=== PATIENT | male | born 1950 | race Caucasian/White ===

== ENCOUNTER 2016-09-09 23:29 | Emergency (ER) | payer MEDICARE ==
[2016-09-10 00:07] LABS: ALANINE AMINOTRANSFERASE 42 U/L (21-72); ALBUMIN 4.8 g/dL (3.5-5.0); ALKALINE PHOSPHATASE 55 U/L (38-126); ANION GAP 16 (5-19); ASPARTATE AMINO TRANSFERASE 35 U/L (17-59); BILIRUBIN,TOTAL 1.5 mg/dL (0.2-1.3); BLOOD UREA NITROGEN 17 mg/dL (7-20); CALCIUM 9.4 mg/dL (8.4-10.2); CARBON DIOXIDE 25 mmol/L (22-30); CHLORIDE 105 mmol/L (98-107); CREATININE RESULT 0.95 mg/dL (0.52-1.25); GLUCOSE 102 mg/dL (75-110); POTASSIUM 3.8 mmol/L (3.6-5.0); TOTAL PROTEIN 7.9 g/dL (6.3-8.2)
[2016-09-10 00:11] LABS: ALCOHOL < 10 mg/dL (NONE DETECTED)
[2016-09-10 00:12] LABS: ABSOLUTE LYMPHOCYTES (AUTO) 1.7 10^3/uL (0.5-4.7); ABSOLUTE MONOCYTES (AUTO) 1.1 10^3/uL (0.1-1.4); ABSOLUTE NEUT (AUTO) 7.8 10^3/uL (1.7-8.2); BASOPHILS % (AUTO) 0.4 % (0-2); HEMATOCRIT 48.5 % (37.9-51.0); HEMOGLOBIN 16.1 g/dL (13.5-17.0); HGB HCT DIFFERENCE -0.2; MEAN CORPUSCULAR HEMOGLOBIN 29.1 pg (27.0-33.4); MEAN CORPUSCULAR HGB CONC 33.3 g/dL (32.0-36.0); MEAN CORPUSCULAR VOLUME 87 fl (80-97); MONOCYTES % (AUTO) 10.6 % (3-13); RED BLOOD COUNT 5.55 10^6/uL (4.35-5.55); RED CELL DISTRIBUTION WIDTH 14.9 % (11.5-14.0); WHITE BLOOD COUNT 10.7 10^3/uL (4.0-10.5)
[2016-09-10] MEDS ORDERED: HYDROCHLOROTHIAZIDE 25 MG TABLET PO ONE (00:12)
[2016-09-10] MEDS ORDERED: DIAZEPAM 5 MG TABLET PO ONE (00:12)
--- NOTE | 2016-09-10 00:20 | ER Document Report ---
ED General - General Stated Complaint: IVC/WITH PAPERS Notes: Patient is a 65-year-old male with past medical history of hypertension who presents with suicidal ideation with a plan to kill himself using a firearm. Patient himself is a very difficult historian, perseverates on his hair and teeth being unpresentable and public and does not provide much in the way of meaningful history. However, he does state that "since 2012 when my mom was put in a shelter and I retired, everything has gone downhill. I don't have a reason to live anymore and I don't see how I can continue to live life like this. I wish I could just ". Family states that the patient had access to firearms initially removed from his home when he had threatened to harm himself. He then went out and purchase additional firearms and again these had to be removed from his possession. Patient states that he was admitted to [facility] in [place] in 2014 and was on medications at that time but discontinued these. He states they did not help. His brother and sister-in -law on the room no that he has been "obsessed" with his hair and teeth for the last several years and has been getting progressively worse. They state that he has refused repeatedly to come to the hospital or see a physician so they were forced to take out IVC before content tonight fearing for his safety. - Related Data Allergies/Adverse Reactions: Penicillins Allergy (Verified 09/10/16 01:23) Past Medical History - General Information source: Patient, Relative - Social History Smoking Status: Never Smoker Frequency of alcohol use: None Drug Abuse: None Lives with: Family Family History: Reviewed & Not Pertinent Review of Systems - Review of Systems Notes: Constitutional: Negative for fever. HENT: Negative for sore throat. Eyes: Negative for visual changes. Cardiovascular: Negative for chest pain. Respiratory: Negative for shortness of breath. Gastrointestinal: Negative for abdominal pain, vomiting or diarrhea. Genitourinary: Negative for dysuria. Musculoskeletal: Negative for back pain. Skin: Negative for rash. Neurological: Negative for headaches, weakness or numbness. 10 point ROS negative except as marked above and in HPI. Physical Exam - Vital signs Vitals: Temp Pulse Resp BP Pulse Ox 98.3 F 107 H 18 177/115 H 96 09/09/16 23:41 09/09/16 23:41 09/09/16 23:41 09/09/16 23:41 09/09/16 23:41 Interpretation: Hypertensive, Tachycardic Notes: PHYSICAL EXAMINATION: GENERAL: Well-appearing, well-nourished and in no acute distress. HEAD: Atraumatic, normocephalic. EYES: Pupils equal round and reactive to light, extraocular movements intact, sclera anicteric, conjunctiva are normal. ENT: nares patent, oropharynx clear without exudates. Moist mucous membranes. NECK: Normal range of motion, supple without lymphadenopathy LUNGS: Breath sounds clear to auscultation bilaterally and equal. No wheezes rales or rhonchi. HEART: Regular rate and rhythm without murmurs ABDOMEN: Soft, nontender, normoactive bowel sounds. No guarding, no rebound. No masses appreciated. EXTREMITIES: Normal range of motion, no pitting or edema. No cyanosis. NEUROLOGICAL: No focal neurological deficits. Moves all extremities spontaneously and on command. PSYCH: Highly anxious, poor eye contact. Tremulous. Perseverating on his hair and teeth repeatedly. SKIN: Warm, Dry, normal turgor, no rashes or lesions noted. Course - Re-evaluation Re-evalutation: 09/10/16 00:13 Patient presents with suicidal ideation, plans to shoot himself. Patient's family has repeatedly had take his guns away as when they take them away goes and buys new guns. The patient perseverates on his teeth and hair being unpresentable in public as reasons why he cannot go out in public or continue to do any activities that he enjoys. His brother and [id number] at the bedside state that he has had a progressive decline since his mother went into a shelter in 2012 and he retired. Patient himself is a difficult historian as he perseverates repeatedly on his hair and teeth but makes very clear statements that he feels hopeless, does not see a reason to live, and would rather be . Patient is extremely high risk for completion of suicide given his age, race, access to firearms, absence of purpose, and progressive worsening of his suicidal ideation. Patient has also been making clear plans to complete suicide. I do not believe he will be safe for discharge at any point during this emergency department stay and will require psychiatric hospitalization for definitive stabilization. Patient denies any acute medical complaints today. He is hypertensive at time of arrival and family states that he has discontinued taking any of his home medications. They also note that he is discontinued self care, has not been eating, drinking or brushing his teeth. 09/10/16 03:37 Patient's medical screening laboratories are unremarkable. He is now sleeping comfortably after receiving oral Valium and Haldol due to extreme anxiety and inability to sleep. He is medically cleared for evaluation by psychiatry in the morning. - Vital Signs Vital signs: Temp Pulse Resp BP Pulse Ox 98.3 F 107 H 18 177/115 H 96 09/09/16 23:41 09/09/16 23:41 09/09/16 23:41 09/09/16 23:41 09/09/16 23:41 - Laboratory Result Diagrams: 09/09/16 23:35 09/09/16 23:35 Laboratory results interpreted by me: 09/09/16 09/09/16 23:35 23:35 WBC 10.7 H RDW 14.9 H Sodium 146.0 H Total Bilirubin 1.5 H Salicylates < 1.0 L Acetaminophen < 10 L - EKG Interpretation by Me Additional EKG results interpreted by me: 09/10/16 03:37 Sinus tachycardia. Rate 104. No ST elevations or depressions. QTC is 453. Discharge - Discharge Clinical Impression: Suicidal ideation Condition: Fair Disposition: PSYCH HOSP/UNIT
[2016-09-10] MEDS ORDERED: HALOPERIDOL 5 MG TABLET PO ONE ×2 (01:38→08:12)
[2016-09-10 04:24] LABS: URINE BARBITURATES SCREEN NEGATIVE; URINE METHADONE SCREEN NEGATIVE; URINE OPIATES LOW NEGATIVE; URINE PHENCYCLIDINE SCREEN NEGATIVE
[2016-09-10 05:52] LABS: APPEARANCE,URINE CLEAR; BILIRUBIN,URINE NEGATIVE (NEGATIVE); GLUCOSE, URINE NEGATIVE (NEGATIVE); KETONES,URINE 100 mg/dL (NEGATIVE)
[2016-09-10 05:53] LABS: LEUKOCYTE ESTERASE,URINE NEGATIVE (NEGATIVE); NITRITE,URINE NEGATIVE (NEGATIVE); PROTEIN,URINE 30 mg/dL (NEGATIVE); UROBILINOGEN,URINE NEGATIVE mg/dL (<2.0)
[2016-09-10] MEDS ORDERED: DIAZEPAM 2 MG TABLET PO ONE (08:12)
--- NOTE | 2016-09-10 11:12 | EKG REPORT ---
SEVERITY:- ABNORMAL ECG - SINUS RHYTHM WITH PACS. BORDERLINE LEFT AXIS DEVIATION DIFFUSE NONSPECIFIC ST-T CHANGES. : Confirmed by: Greg Oshea MD 10-Sep-2016 11:11:27
[2016-09-10] MEDS: DIVALPROEX SODIUM 500 MG TAB.SR.24H PO SCH (18:06)
[2016-09-10] MEDS: CLONIDINE HCL 0.1 MG TABLET PO PRN (21:59)
[2016-09-10] MEDS ORDERED: BUSPIRONE HCL 10 MG TABLET PO SCH (22:00)
--- NOTE | 2016-09-11 09:04 | PSYCHOLOGICAL NOTE ---
Psych Note - Psych Note Psych Note: Patient is a 65 year old male who presented with SI overnight accompanied by his brother and [id number]-agl (LAURENCE). Patient reportedly planned to commit suicide with a gun; however, patient's guns were then removed by these family members for his safety. Patient reportedly then went and purchased another gun, which was again subsequently removed by family when discovered. Patient reportedly has declined in mental status since his mother was admitted to to a SNF and he retired in 2012. Also reported upon arrival was 1 prior admission to [facility] for depression and SI; however, patient declined to continue the medications post discharge. Patient today states everything went downhill when his mother , and prior to that when he retired in 2012. Patient states his mother was his lifeline. Patient reports he lost all purpose when he stopped caring for her. Patient additionally correlates all of his current struggles to his gallbladder problems stemming back to 2013. Patient provides extensive explanation in regards to his numerous medical appointments regarding his gallbladder, and subsequent (according to him) reflux which she states has caused his hair to fall out as well as ruining his teeth. Patient perseverates on his teeth and hair for a long period of time during discussion. Patient relates all of his struggles to his gallbladder and feels as though if it had been taken out surgically as he initially requested years ago he would not be in this predicament. Patient does report prior suicide attempts and multiple prior hospitalizations, the most recent was at [facility] for depression and anxiety. Patient's family is bedside and he provides verbal consent to speak with them. Patient's brother, David and LAURENCE : Collectively report the patient has had a lifetime of struggles, but states when he was working he was very much focused and able to follow a strict schedule and expectations. Brother reports when he retired he sort of lost all organization. Brother states the patient will become fixated on anything, and states currently he is fixated on his hair and teeth. Brother reports they're mother was the same way prior to her . Brother states the patient has given everything away and planned his own . He states he's given up his home, his vehicle, and all items related to his hobbies and moved in with his arms. Mother states it has been 4 weeks since the patient has engaged in any sort of self-care, to include showering. Brother states the patient remains in his room with the door shut. He does state they removed weapons from the patient, and when they did so the patient went and purchased another gun. Patient is alert and oriented. Mood is depressed with flat affect. Patient endorses suicidal ideations with plan, intent, and means. Patient denies homicidal ideations, intent, plan, means. Patient denies auditory/visual hallucinations; delusions were noted. Thought processes were perseverative and difficult to redirect. Conversational speech was low for rate, tone, and prosody. Intellectual abilities were estimated within average range. Attention and focus were poor. Insight, judgment, impulse control were poor. Unspecified depressive disorder per history Unspecified neurocognitive disorder Patient is recommended to remain under IVC and seek 24-hour inpatient commitment. Patient endorses continued ideations regarding suicide. Patient states he did purchase another gun after his previous ones were removed. He states he had this weapon hidden in his room and every other night would sneak out behind the barn and plan to shoot himself. Patient states each time he "chickened out," but states he does not see a reason to live. Patient states he would likely overdose he were to attempt suicide again. Patient has had numerous life changes and per collateral and patient reports appears to have deteriorated in mental status to include his current presentation of perseverative-type thoughts and even delusions regarding his hair, tremulous type presentation and hands, etc. In addition to the IVC recommendations, patient is recommended to follow up with neurology upon discharge from this and/ or a psychiatric hospital. I consulted with Dr. Barrett in regards to the care and management of this patient. SATURNINO Dugan is in agreement with disposition and recommendations.
[2016-09-11] MEDS: DIVALPROEX SODIUM 500 MG TAB.SR.24H PO SCH (09:52)
[2016-09-11] MEDS: CLONIDINE HCL 0.1 MG TABLET PO PRN (09:54)
[2016-09-11 12:34] VITALS: BP 147/84
== END 2016-09-11 12:38 ==
LOC: ER 23:29
DX: R45.851 Suicidal ideations (principal); F32.9 Major depressive disorder, single episode, unspecified; R29.90 Unspecified symptoms and signs involving the nervous system; I10 Essential (primary) hypertension; Z88.0 Allergy status to penicillin
CPT/HCPCS: 93005; 99285; 36415; 80307 ×4; 85025; 80053; 81001; 70450; 93010; A9270 ×8; J3490

== ENCOUNTER 2020-02-01 15:00 | Inpatient (IN) | payer MEDICARE ==
[2020-02-01 15:39] LABS: ABSOLUTE LYMPHOCYTES (AUTO) 0.8 10^3/uL (0.5-4.7); ABSOLUTE MONOCYTES (AUTO) 0.6 10^3/uL (0.1-1.4); ABSOLUTE NEUT (AUTO) 6.5 10^3/uL (1.7-8.2); BASOPHILS % (AUTO) 0.2 % (0-2); EOSINOPHILS % (AUTO) 0.1 % (0-6); HEMATOCRIT 38.1 % (37.9-51.0); HEMOGLOBIN 13.1 g/dL (13.5-17.0); MEAN CORPUSCULAR HEMOGLOBIN 30.6 pg (27.0-33.4); MEAN CORPUSCULAR HGB CONC 34.5 g/dL (32.0-36.0); MEAN CORPUSCULAR VOLUME 89 fl (80-97); MONOCYTES % (AUTO) 7.1 % (3-13); PLATELET COUNT 165 10^3/uL (150-450); RED CELL DISTRIBUTION WIDTH 14.5 % (11.5-14.0); SEGMENTED NEUTROPHILS % (AUTO) 82.6 % (42-78); TOTAL CELLS COUNTED % (AUTO) 100 %; WHITE BLOOD COUNT 7.8 10^3/uL (4.0-10.5)
[2020-02-01] MEDS ORDERED: NORMAL SALINE 1000 ML 1,000 ML IV ONE ×2 (15:48→18:45)
[2020-02-01 15:58] LABS: ACETAMINOPHEN < 10 ug/mL (10-30); ALBUMIN 4.6 g/dL (3.5-5.0); ALCOHOL < 10 mg/dL (NONE DETECTED); ALKALINE PHOSPHATASE 42 U/L (38-126); ANION GAP 7 (5-19); ASPARTATE AMINO TRANSFERASE 35 U/L (17-59); BILIRUBIN,TOTAL 0.5 mg/dL (0.2-1.3); BLOOD UREA NITROGEN 26 mg/dL (7-20); CALCIUM 9.4 mg/dL (8.4-10.2); CARBON DIOXIDE 30 mmol/L (22-30); CHLORIDE 100 mmol/L (98-107); GLUCOSE 113 mg/dL (75-110); POTASSIUM 4.9 mmol/L (3.6-5.0); SALICYLATE < 1.0 mg/dL (2.0-20.0); TOTAL PROTEIN 7.3 g/dL (6.3-8.2)
--- NOTE | 2020-02-01 16:15 | ER Document Report ---
ED General - General Chief Complaint: Overdose Stated Complaint: POSSIBLE OVERDOSE Time Seen by Provider: 02/01/20 15:24 Primary Care Provider: AVELINA QUICK MD [Primary Care Provider] - Follow up as needed - [facility] Notes: Chief complaint: Intentional overdose History of present illness: 69-year-old male with history of major depression and previous IVC for suicide attempt is now transported to the ED by EMS after family members reported he had taken a 12-day supply of all of his usual chronic medications. They have sent in a list of the medications and the following are included: Multivitamin, lisinopril 5 mg, furosemide 20 mg, clonazepam 2 mg omeprazole 40 mg, hyoscyamine 0.125 mg, cyproheptadine 4 mg, ariprazole 5 mg, Lexapro 10 mg. These medications were apparently taken late last night by the patient according to family members. For some reason they waited until early afternoon to bring him him by EMS reporting that he is difficult to arouse. History is obtained from EMS documentation. Patient is unable to communicate his own history at this time. - Related Data Allergies/Adverse Reactions: Penicillins Allergy (Verified 09/10/16 01:23) Past Medical History - General Information source: [facility] Records Cannot obtain history due to: Altered mental status - Social History Smoking Status: Unknown if Ever Smoked Family History: Reviewed & Not Pertinent - Past Medical History Cardiac Medical History: Reports: Hx Hypercholesterolemia, Hx Hypertension GI Medical History: Reports: Hx Gastroesophageal Reflux Disease Psychiatric Medical History: Reports: Hx Depression Review of Systems - Review of Systems -: Yes ROS unobtainable due to patient's medical condition Physical Exam - Vital signs Vitals: Temp Pulse Ox 97.4 F 98 02/01/20 15:04 02/01/20 15:04 Current blood pressure 92/64 cuff at bedside right upper extremity. - Notes Notes: GENERAL: Obtunded elderly male who responds to loud verbal stimuli. SKIN: Cool and pale. Good turgor no rashes. HEAD: Normocephalic atraumatic. EYES: Pupils are small equal and sluggishly reactive to light. Gaze is conjugate. Conjunctivae and sclerae clear. EARS: CANALS AND TMS CLEAR. NOSE: CLEAR. MOUTH: Moist mucosa. Poor dentition. No stridor or edema. No drooling. Throat: Clear. Gag reflex intact. NECK: Supple. No masses or thyromegaly. No adenopathy. Carotids 2+ without bruits. No JVD. BACK: Symmetrical without tenderness. CHEST: Respirations unlabored. Breath sounds clear and symmetrical. HEART: Regular rhythm. No murmur gallop or rub. ABDOMEN: Soft nontender without masses, organomegaly or rebound. Bowel sounds normally active. No bruits. GENITALIA: Deferred. EXTREMITIES: No edema. No calf tenderness. Cap refill less than 1.5 seconds. Dorsalis pedis and posterior tibial pulses 3+ and symmetrical. NEUROLOGICAL: Opens eyes to loud verbal stimuli. He will microphone operator my hand in response to verbal command. His speech is garbled and unintelligible. GCS 12 he was here couple years ago self basically he is. Patient is obtunded. He moves all 4 extremities symmetrically. PSYCHIATRIC: Appropriate affect. Course - Vital Signs Vital signs: Temp Pulse Resp BP Pulse Ox 97.4 F 13 86/65 L 96 02/01/20 15:04 02/01/20 15:42 02/01/20 15:42 02/01/20 15:42 - Laboratory Result Diagrams: 02/01/20 15:13 02/01/20 15:13 Laboratory results interpreted by me: 02/01/20 02/01/20 15:13 15:13 RBC 4.30 L Hgb 13.1 L RDW 14.5 H Lymph % (Auto) 10.0 L Seg Neutrophils % 82.6 H BUN 26 H Creatinine 1.72 H Est GFR ( Amer) 48 L Est GFR (MDRD) Non-Af 40 L Glucose 113 H Salicylates < 1.0 L Acetaminophen < 10 L - EKG Interpretation by Me Additional EKG results interpreted by me: 02/01/20 16:31 Twelve-lead EKG from 1519 hrs. is reviewed contemporaneously by me showing sinus bradycardia with rate of 57. QRS axis is -28 degrees. SD interval 168 ms. QRS interval 86 ms. Corrected QTC is 468 ms. There are no acute ST/T wave changes present. There is no old EKG for direct comparison. Indication for current study: Polydrug overdose. Critical Care Note - Critical Care Note Total time excluding time spent on procedures (mins): 35 - Continuous EKG monitoring. IV fluids. [place] Poison control consulted. They recommend 24-hour admission to monitored bed. Discharge - Discharge Clinical Impression: Polydrug overdose with AMS Condition: Serious Disposition: ADMITTED INPATIENT Admitting Provider: Geni (Hospitalist) Unit Admitted: IMCU Referrals: AEVLINA QUICK MD [Primary Care Provider] - Follow up as needed
[2020-02-01] MEDS ORDERED: NORMAL SALINE 1000 ML 1,000 ML IV PRN (16:41)
[2020-02-01] MEDS ORDERED: ACETAMINOPHEN 325 MG TABLET PO PRN (16:41)
[2020-02-01] MEDS ORDERED: ONDANSETRON HCL INJ/PF 4 MG/2 ML SDV IV PRN (16:41)
--- NOTE | 2020-02-01 16:43 | RADIOLOGY REPORT (SQ) ---
EXAM DESCRIPTION: CHEST SINGLE VIEW IMAGES COMPLETED DATE/TIME: 02/01/2020 4:21 pm REASON FOR STUDY: overdose COMPARISON: None. TECHNIQUE: Single frontal radiographic view of the chest acquired. NUMBER OF VIEWS: One view. LIMITATIONS: None. FINDINGS: LUNGS AND PLEURA: No pneumothorax. No consolidation or pleural effusion. MEDIASTINUM AND HILAR STRUCTURES: No contour abnormalities. HEART AND VASCULAR STRUCTURES: Heart upper limits of normal size. BONES: No acute findings. HARDWARE: None in the chest. OTHER: No other significant finding. IMPRESSION: NO ACUTE FINDINGS. TECHNICAL DOCUMENTATION: JOB ID: [id number] [place]-72 2010 [employer]- All Rights Reserved Reading location - IP/workstation name: [email or web address]
--- NOTE | 2020-02-01 17:07 | PDOC H&P ---
History of Present Illness Admission Date/PCP: AVELINA QUICK MD Patient complains of: Drug overdose with suicidal attempt History of Present Illness: JANETTE NEFF is a 69 year old male with history of hypertension, depression took 2-week supply of Lasix, lisinopril, cyproheptadine, Lexapro all of his chronic medications as per the ER physician and came to the emergency room. Work-up in the emergency room indicates ROMELIA with creatinine of 1.72. Patient is also hypotensive systolic blood pressure in the 80s. So far he received 1 L of normal saline. EKG shows sinus bradycardia around 57. Respiratory rate around 10 pulse ox is 100%. On room air. Plan to put him in eyes IMCU at this time. Patient is unable to provide much history. Most of the history obtained from the ER physician documentation. No family members at bedside. Patient control was notified the recommendation is to keep him in the hospital observation. Past Medical History Cardiac Medical History: Reports: Hyperlipidema, Hypertension GI Medical History: Reports: Gastroesophageal Reflux Disease Psychiatric Medical History: Reports: Depression Social History Information Source: Patient, Emergency Med Personnel, [facility] Records Smoking Status: Unknown if Ever Smoked Electronic Cigarette use?: No Hx Recreational Drug Use: No - Advance Directive Resuscitation Status: Full Code Family History Family History: Reviewed & Not Pertinent Parental Family History Reviewed: Yes - Unknown Children Family History Reviewed: Unknown Sibling(s) Family History Reviewed.: Unknown Medication/Allergy Home Medications: Aripiprazole 5 mg PO DAILY 02/01/20 Clonazepam 0.5 mg PO TID 02/01/20 Cyproheptadine HCl 4 mg PO TID 02/01/20 Escitalopram Oxalate [Lexapro 10 mg Tablet] 20 mg PO DAILY 02/01/20 Fluoxetine HCl 40 mg PO DAILY 02/01/20 Furosemide [Lasix 20 mg Tablet] 20 mg PO DAILY 02/01/20 Hyoscyamine Sulfate [Levsin 0.125 Tablet] 0.125 mg PO Q4HP PRN 02/01/20 Lisinopril [Prinivil 5 mg Tablet] 5 mg PO DAILY 02/01/20 Olanzapine [Zyprexa 5 mg Tablet] 5 mg PO DAILY 02/01/20 Omeprazole 40 mg PO DAILY 02/01/20 Allergies/Adverse Reactions: Penicillins Allergy (Verified 09/10/16 01:23) Review of Systems ROS unobtainable: Due to mental status, Other - Unable to get information because of change in mental status due to drug overdose. Eyes: ABSENT: visual disturbances Ears: ABSENT: hearing changes Physical Exam Vital Signs: Temp Pulse Resp BP Pulse Ox 97.4 F 10 L 109/72 100 02/01/20 15:04 02/01/20 16:30 02/01/20 16:30 02/01/20 16:30 Intake & Output 01/31/20 02/01/20 02/02/20 06:59 06:59 06:59 Intake Total 1000 Balance 1000 Weight 78.9 kg General appearance: PRESENT: well-developed, other - Drowsy lethargic on chest open opening the eyes and mumbling. Head exam: PRESENT: atraumatic Eye exam: PRESENT: PERRLA Ear exam: PRESENT: normal external ear exam Teeth exam: PRESENT: poor dentation Neck exam: ABSENT: carotid bruit, JVD, lymphadenopathy, thyromegaly Respiratory exam: PRESENT: decreased breath sounds Cardiovascular exam: PRESENT: bradycardia GI/Abdominal exam: PRESENT: normal bowel sounds, soft. ABSENT: distended, guarding, mass, organolmegaly, rebound, tenderness Rectal exam: PRESENT: deferred Extremities exam: PRESENT: full ROM. ABSENT: calf tenderness, clubbing, pedal edema Neurological exam: PRESENT: alert, awake, oriented to person, oriented to place, oriented to time, oriented to situation, CN II-XII grossly intact. ABSENT: motor sensory deficit Psychiatric exam: PRESENT: appropriate affect, normal mood. ABSENT: homicidal ideation, suicidal ideation Results Laboratory Results: 02/01/20 15:13 02/01/20 15:13 02/01/20 02/01/20 15:13 15:13 WBC 7.8 RBC 4.30 L Hgb 13.1 L Hct 38.1 MCV 89 MCH 30.6 MCHC 34.5 RDW 14.5 H Plt Count 165 Seg Neutrophils % 82.6 H Sodium 137.4 Potassium 4.9 Chloride 100 Carbon Dioxide 30 Anion Gap 7 BUN 26 H Creatinine 1.72 H Est GFR ( Amer) 48 L Glucose 113 H Calcium 9.4 Total Bilirubin 0.5 AST 35 Alkaline Phosphatase 42 Total Protein 7.3 Albumin 4.6 Impressions: Chest X-Ray 02/01/20 16:08 IMPRESSION: NO ACUTE FINDINGS. Assessment and Plan - Diagnosis (1) Drug overdose Is this a current diagnosis for this admission?: Yes Plan: 02/01/2020 patient is going to be admitted to [facility] for drug overdose with suicidal attempt. Took chronic medications of 2 weeks supply. Hypotensive in the ER. In ROMELIA. Started on normal saline at 150 cc/h. Patient received 1 L of normal saline in the ER. Placed on oxygen 2 L via nasal cannula. Aspiration fall seizure precautions are requested. GI prophylaxis DVT prophylaxis initiated. To repeat the EKG tonight. Repeat labs are requested. To keep him n.p.o. at this time. Psych consult placed. (2) Suicidal overdose Is this a current diagnosis for this admission?: Yes Plan: 02/01/2020-patient admitted to take extra dose of medications with suicidal attempt. Psych consult was done. Poison control is notified. Once the patient more alert more awake probably psych team will make the recommendations. (3) Hypotension Is this a current diagnosis for this admission?: Yes Plan: 02/01/2020-patient took 2-week supply of lisinopril and furosemide. Baseline creatinine is around 0.5 and admission creatinine is 1.72. Received 1 L of normal saline in the ER started on a normal saline at 150 cc/h. TO Watch for electrolyte abnormalities. (5) ROMELIA (acute kidney injury) Is this a current diagnosis for this admission?: Yes Plan: 02/01/2020-baseline creatinine is around 0.95 on admission creatinine is 1.72. Received 1 L of normal saline and presently on normal saline at 150 cc/h.
[2020-02-01 17:09] LABS: APPEARANCE,URINE CLEAR; BILIRUBIN,URINE NEGATIVE (NEGATIVE); COLOR,URINE YELLOW; GLUCOSE, URINE NEGATIVE (NEGATIVE); KETONES,URINE NEGATIVE (NEGATIVE); LEUKOCYTE ESTERASE,URINE NEGATIVE (NEGATIVE); NITRITE,URINE NEGATIVE (NEGATIVE); PROTEIN,URINE NEGATIVE (NEGATIVE); URINE SPECIFIC GRAVITY 1.005; UROBILINOGEN,URINE NEGATIVE mg/dL (<2.0)
[2020-02-01 17:12] LABS: URINE AMPHETAMINES SCREEN NEGATIVE; URINE BARBITURATES SCREEN NEGATIVE; URINE BENZODIAZEPINES SCREEN NEGATIVE; URINE COCAINE SCREEN NEGATIVE; URINE MARIJUANA (THC) SCREEN NEGATIVE; URINE METHADONE SCREEN NEGATIVE; URINE PHENCYCLIDINE SCREEN NEGATIVE
--- NOTE | 2020-02-01 17:25 | EKG REPORT ---
SEVERITY:- OTHERWISE NORMAL ECG - SINUS RHYTHM BORDERLINE LEFT AXIS DEVIATION : Confirmed by: Rina Benitez MD 01-Feb-2020 17:25:01
[2020-02-01 17:52] LABS: ARTERIAL BLOOD BASE EXCESS 2.2 mmol/L; ARTERIAL BLOOD FIO2 21%; ARTERIAL BLOOD H2CO3 1.55 mmol/L (1.05-1.35); ARTERIAL BLOOD HCO3 28.6 mmol/L (20-24); ARTERIAL BLOOD O2 SATURATION 95.1 % (94-98); ARTERIAL BLOOD PCO2 51.5 mmHg (35-45); ARTERIAL BLOOD PH 7.36 (7.35-7.45); ARTERIAL BLOOD PO2 79.1 mmHg (80-100); ARTERIAL BLOOD TOTAL CO2 30.2 mmol/L (23-27)
--- NOTE | 2020-02-01 18:14 | PSYCHOLOGICAL NOTE ---
Psych Note - Psych Note Date seen by psych provider: 02/01/20 Time seen by psych provider: 15:08 - 1508 chart review previous visit, 1608 chart review current visit documentation. 1610 observed patient laying in bed and Radiology present. 1616 spoek to ED Physician. Psych Note: Patient is a 69 year old male who presented to the ED today via EMS due to family calling after they found his 12 day pill binder empty on his bedroom floor this morning. Medications in that pill binder include: Multivitamin, Lisinopril 5MG, Furosemide 20MG, Clonazepam 0.5MG three times a day, Omeprazole, Hyoscyamine 0.125MG, Cyproheptadine 4MG twice a day, Abilify 5MG, Lexapro 10MG, Prozac 40MG, Simvastatin 20MG, Zyprexa 5MG and Melatonin 10MG. He reported to medical staff it was a suicide attempt. Per medical documentation he presented somnolent, arousable to loud voice and gentle shaking, had slow response time and garbled speech. Patient has a mental health history and was seen in the ED for suicidal ideation with plan to shoot self (family had to remove firearms) August 2016 which resulted in hospitalization at [facility]. Chart review from previous ED visit in 2017 noted patient had a previous commitment at [facility] and he had reported his mental health declined since he retired in 2012 and when his mother went into SNF then . Observed patient laying in bed on his back, eyes barely open, mouth wide open. Radiology was present for chest x-ray. ED Nurse noted patient was snoring. ED Physician noted patient was marginally hypotensive, deeply sedated and he (physician) was calling Poison Control. ED Physician requested IVC. Patient being medically admitted.
--- NOTE | 2020-02-01 18:16 | RADIOLOGY REPORT (SQ) ---
EXAM DESCRIPTION: CT HEAD WITHOUT IMAGES COMPLETED DATE/TIME: 02/01/2020 5:56 pm REASON FOR STUDY: ALTERED MENTAL STATUS COMPARISON: 09/10/2016 TECHNIQUE: Axial images acquired through the brain without intravenous contrast. Images reviewed wit h bone, brain and subdural windows. Images stored on PACS. All CT scanners at this facility use dose modulation, iterative reconstruction, and/or weight based d osing when appropriate to reduce radiation dose to as low as reasonably achievable (ALARA). [facility]: Dose Right [facility]: CareDose [facility]: Dose Right [facility]: Teradose 4D [facility]: [employer] RADIATION DOSE: CT Rad equipment meets quality standard of care and radiation dose reduction techniq ues were employed. CTDIvol: 53.2 mGy. DLP: 1124 mGy-cm.. LIMITATIONS: None. FINDINGS: VENTRICLES: Normal size and contour. CEREBRUM: No masses. No hemorrhage. No midline shift. Age appropriate white matter. No evidence for a cute infarction. CEREBELLUM: No masses. No hemorrhage. No alteration of density. No evidence for acute infarction. EXTRA-AXIAL SPACES: No fluid collections. ORBITS AND GLOBE: No intra- or extraconal masses. Normal contour of globe without masses. CALVARIUM: No fracture. PARANASAL SINUSES: No fluid or mucosal thickening. SOFT TISSUES: No mass or hematoma. OTHER: No other significant finding. IMPRESSION: NO ACUTE INTRACRANIAL FINDINGS. EVIDENCE OF ACUTE STROKE: NO. TECHNICAL DOCUMENTATION: JOB ID: [id number] [id number] Quality ID # [id number]: Final reports with documentation of one or more dose reduction techniques (e.g., Au tomated exposure control, adjustment of the mA and/or kV according to patient size, use of iterative reconstruction technique) 2010 [employer]- All Rights Reserved Reading location - IP/workstation name: [email or web address]
[2020-02-01] MEDS ORDERED: MIDODRINE HCL 5 MG TABLET PO ONE (19:38)
[2020-02-01] MEDS: NORMAL SALINE 1000 ML 1,000 ML IV PRN (19:50)
[2020-02-01] MEDS: IPRATROPIUM/ALBUTEROL 0.5-2.5 MG/3 ML AMPUL NEB SCH (22:47)
--- NOTE | 2020-02-02 01:08 | EKG REPORT ---
SEVERITY:- BORDERLINE ECG - SINUS RHYTHM ATRIAL PREMATURE COMPLEX BORDERLINE LEFT AXIS DEVIATION CONSIDER ANTERIOR INFARCT : Confirmed by: Rina Benitez MD 02-Feb-2020 01:07:29
--- NOTE | 2020-02-02 01:09 | EKG REPORT ---
SEVERITY:- ABNORMAL ECG - BORDERLINE LEFT AXIS DEVIATION BORDERLINE T ABNORMALITIES, INFERIOR LEADS BORDERLINE PROLONGED QT INTERVAL SINUS RHTM WITH BASELINE ARTIFACT : Confirmed by: Rina Benitez MD 02-Feb-2020 01:08:34
[2020-02-02] MEDS: HEPARIN SOD (PORCINE) 5,000 UNIT/ML 1 ML VIAL SUBCUT SCH ×4 (02:49→21:14)
[2020-02-02] MEDS: PANTOPRAZOLE SODIUM 40 MG VIAL IV SCH ×3 (02:58→21:14)
[2020-02-02] MEDS: NORMAL SALINE 1000 ML 1,000 ML IV PRN ×2 (03:15→18:24)
[2020-02-02] MEDS ORDERED: NORMAL SALINE 1000 ML 1,000 ML IV PRN ×3 (04:30→12:43)
[2020-02-02 05:53] LABS: ABSOLUTE LYMPHOCYTES (AUTO) 0.8 10^3/uL (0.5-4.7); ABSOLUTE MONOCYTES (AUTO) 0.6 10^3/uL (0.1-1.4); ABSOLUTE NEUT (AUTO) 6.2 10^3/uL (1.7-8.2); BASOPHILS % (AUTO) 0.1 % (0-2); EOSINOPHILS % (AUTO) 0.1 % (0-6); HEMATOCRIT 35.2 % (37.9-51.0); LYMPHOCYTES % (AUTO) 10.2 % (13-45); MEAN CORPUSCULAR HEMOGLOBIN 30.2 pg (27.0-33.4); MEAN CORPUSCULAR HGB CONC 34.2 g/dL (32.0-36.0); MEAN CORPUSCULAR VOLUME 89 fl (80-97); MONOCYTES % (AUTO) 7.5 % (3-13); PLATELET COUNT 140 10^3/uL (150-450); RED BLOOD COUNT 3.98 10^6/uL (4.35-5.55); RED CELL DISTRIBUTION WIDTH 14.6 % (11.5-14.0); SEGMENTED NEUTROPHILS % (AUTO) 82.1 % (42-78); TOTAL CELLS COUNTED % (AUTO) 100 %; WHITE BLOOD COUNT 7.6 10^3/uL (4.0-10.5)
[2020-02-02 06:06] LABS: INTERNATIONAL RATION (INR) 1.08
[2020-02-02 06:18] LABS: ALBUMIN 3.6 g/dL (3.5-5.0); ALKALINE PHOSPHATASE 37 U/L (38-126); ANION GAP 8 (5-19); ASPARTATE AMINO TRANSFERASE 40 U/L (17-59); BILIRUBIN,TOTAL 0.6 mg/dL (0.2-1.3); BLOOD UREA NITROGEN 26 mg/dL (7-20); CALCIUM 8.3 mg/dL (8.4-10.2); CARBON DIOXIDE 26 mmol/L (22-30); CHLORIDE 106 mmol/L (98-107); CHOLESTEROL 108.12 mg/dL (0-200); CREATINE KINASE 842 U/L (55-170); GLUCOSE 86 mg/dL (75-110); POTASSIUM 4.2 mmol/L (3.6-5.0); TRIGLYCERIDES 73 mg/dL (<150)
[2020-02-02 06:29] LABS: DIRECT LDL 60 mg/dL (<100)
[2020-02-02] MEDS: IPRATROPIUM/ALBUTEROL 0.5-2.5 MG/3 ML AMPUL NEB SCH ×4 (08:11→20:21)
--- NOTE | 2020-02-02 09:21 | PDOC PROGRESS REPORT ---
Subjective Progress Note for:: 02/02/20 Subjective:: 69 year old male with history of hypertension, depression took 2-week supply of Lasix, lisinopril, cyproheptadine, Lexapro all of his chronic medications as per the ER physician and came to the emergency room. Work-up in the emergency room indicates ROMELIA with creatinine of 1.72. Patient is also hypotensive systolic blood pressure in the 80s. So far he received 1 L of normal saline. EKG shows sinus bradycardia around 57. Respiratory rate around 10 pulse ox is 100%. On room air. Plan to put him in eyes IMCU at this time. Patient is unable to provide much history. Most of the history obtained from the ER physician documentation. No family members at bedside. Patient control was notified the recommendation is to keep him in the hospital observation. 02/02/2020-patient is more alert more awake compared to yesterday. He admitted that he took a lot of medications to kill himself. He still is drowsy enough to keep him n.p.o. for today. He receiving IV fluids. He admitted for ROMELIA with admission serum creatinine 1.72 with IV fluids improved to 1.42. Behavioral consult was requested. Patient is not medically cleared at this time. Reason For Visit: DRUG OVERDOSE Physical Exam Vital Signs: Temp Pulse Resp BP Pulse Ox 97.4 F 80 16 92/50 L 93 02/02/20 07:45 02/02/20 08:13 02/02/20 08:13 02/02/20 07:45 02/02/20 08:13 Intake & Output 02/01/20 02/02/20 02/03/20 06:59 06:59 06:59 Intake Total 4000 Output Total 4925 Balance -925 Weight 83.1 kg General appearance: PRESENT: no acute distress, cooperative, well-developed Head exam: PRESENT: atraumatic Eye exam: PRESENT: PERRLA Ear exam: PRESENT: normal external ear exam Teeth exam: PRESENT: poor dentation Neck exam: ABSENT: carotid bruit, JVD, lymphadenopathy, thyromegaly Respiratory exam: PRESENT: decreased breath sounds Cardiovascular exam: PRESENT: RRR. ABSENT: diastolic murmur, rubs, systolic murmur Pulses: PRESENT: normal dorsalis pedis pul GI/Abdominal exam: PRESENT: normal bowel sounds, soft. ABSENT: distended, guarding, mass, organolmegaly, rebound, tenderness Rectal exam: PRESENT: deferred Extremities exam: PRESENT: full ROM. ABSENT: calf tenderness, clubbing, pedal edema Neurological exam: PRESENT: alert, awake, oriented to person, oriented to place, oriented to time, oriented to situation, CN II-XII grossly intact. ABSENT: motor sensory deficit Psychiatric exam: PRESENT: appropriate affect, normal mood. ABSENT: homicidal ideation, suicidal ideation Results Laboratory Results: 02/02/20 04:58 02/02/20 04:58 02/01/20 02/01/20 02/01/20 15:13 15:13 15:13 WBC 7.8 RBC 4.30 L Hgb 13.1 L Hct 38.1 MCV 89 MCH 30.6 MCHC 34.5 RDW 14.5 H Plt Count 165 Seg Neutrophils % 82.6 H Carbonic Acid HCO3/H2CO3 Ratio ABG pH ABG pCO2 ABG pO2 ABG HCO3 ABG O2 Saturation ABG Base Excess FiO2 Sodium 137.4 Potassium 4.9 Chloride 100 Carbon Dioxide 30 Anion Gap 7 BUN 26 H Creatinine 1.72 H Est GFR ( Amer) 48 L Glucose 113 H Calcium 9.4 Magnesium 2.3 Total Bilirubin 0.5 AST 35 Alkaline Phosphatase 42 Total Protein 7.3 Albumin 4.6 Triglycerides Cholesterol LDL Cholesterol Direct VLDL Cholesterol HDL Cholesterol TSH Urine Color Urine Appearance Urine pH Ur Specific [place] Urine Protein Urine Glucose (UA) Urine Ketones Urine Blood Urine Nitrite Ur Leukocyte Esterase Urine WBC (Auto) Urine RBC (Auto) 02/01/20 02/01/20 02/02/20 16:35 17:20 04:58 WBC 7.6 RBC 3.98 L Hgb 12.0 L Hct 35.2 L MCV 89 MCH 30.2 MCHC 34.2 RDW 14.6 H Plt Count 140 L Seg Neutrophils % 82.1 H Carbonic Acid 1.55 H HCO3/H2CO3 Ratio 18:1 ABG pH 7.36 ABG pCO2 51.5 H ABG pO2 79.1 L ABG HCO3 28.6 H ABG O2 Saturation 95.1 ABG Base Excess 2.2 FiO2 21% Sodium Potassium Chloride Carbon Dioxide Anion Gap BUN Creatinine Est GFR ( Amer) Glucose Calcium Magnesium Total Bilirubin AST Alkaline Phosphatase Total Protein Albumin Triglycerides Cholesterol LDL Cholesterol Direct VLDL Cholesterol HDL Cholesterol TSH Urine Color YELLOW Urine Appearance CLEAR Urine pH 5.0 Ur Specific [place] 1.005 Urine Protein NEGATIVE Urine Glucose (UA) NEGATIVE Urine Ketones NEGATIVE Urine Blood NEGATIVE Urine Nitrite NEGATIVE Ur Leukocyte Esterase NEGATIVE Urine WBC (Auto) 0 Urine RBC (Auto) 0 02/02/20 02/02/20 04:58 04:58 WBC RBC Hgb Hct MCV MCH MCHC RDW Plt Count Seg Neutrophils % Carbonic Acid HCO3/H2CO3 Ratio ABG pH ABG pCO2 ABG pO2 ABG HCO3 ABG O2 Saturation ABG Base Excess FiO2 Sodium 139.9 Potassium 4.2 Chloride 106 Carbon Dioxide 26 Anion Gap 8 BUN 26 H Creatinine 1.42 H Est GFR ( Amer) > 60 Glucose 86 Calcium 8.3 L Magnesium 1.9 Total Bilirubin 0.6 AST 40 Alkaline Phosphatase 37 L Total Protein 6.0 L Albumin 3.6 Triglycerides 73 Cholesterol 108.12 LDL Cholesterol Direct 60 VLDL Cholesterol 15.0 HDL Cholesterol 32 L TSH 0.64 Urine Color Urine Appearance Urine pH Ur Specific [place]ingo Urine Protein Urine Glucose (UA) Urine Ketones Urine Blood Urine Nitrite Ur Leukocyte Esterase Urine WBC (Auto) Urine RBC (Auto) 02/01/20 02/01/20 02/02/20 15:13 15:13 04:58 Creatine Kinase 80 842 H Troponin I < 0.012 Impressions: Head CT 02/01/20 00:00 IMPRESSION: NO ACUTE INTRACRANIAL FINDINGS. EVIDENCE OF ACUTE STROKE: NO. Chest X-Ray 02/01/20 16:08 IMPRESSION: NO ACUTE FINDINGS. Assessment and Plan - Diagnosis (1) Drug overdose Is this a current diagnosis for this admission?: Yes Plan: 02/01/2020 patient is going to be admitted to [facility] for drug overdose with suicidal attempt. Took chronic medications of 2 weeks supply. Hypotensive in the ER. In ROMELIA. Started on normal saline at 150 cc/h. Patient received 1 L of normal saline in the ER. Placed on oxygen 2 L via nasal cannula. Aspiration fall seizure precautions are requested. GI prophylaxis DVT prophylaxis initiated. To repeat the EKG tonight. Repeat labs are requested. To keep him n.p.o. at this time. Psych consult placed. 02/02/2020-patient is more alert more awake compared to yesterday. He admitted that he took several home medications as a suicidal attempt. He had history of previous suicidal attempt history. To keep him n.p.o. To continue gentle IV hydration. Aspiration fall seizure precautions are requested. To repeat the labs tomorrow. EKG with no acute abnormalities. (2) Suicidal overdose Is this a current diagnosis for this admission?: Yes Plan: 02/01/2020-patient admitted to take extra dose of medications with suicidal attempt. Psych consult was done. Poison control is notified. Once the patient more alert more awake probably psych team will make the recommendations. (3) Hypotension Is this a current diagnosis for this admission?: Yes Plan: 02/01/2020-patient took 2-week supply of lisinopril and furosemide. Baseline creatinine is around 0.5 and admission creatinine is 1.72. Received 1 L of normal saline in the ER started on a normal saline at 150 cc/h. TO Watch for electrolyte abnormalities. 02/02/2020-patient is hypotensive in the emergency room systolic blood pressure in the 70s. Received 3 L of normal saline bolus, maintenance dose of normal saline at 150 cc/h. Plan is to decrease the fluid rate to 50 cc/h today creatinine improved to 1.4. (4) ROMELIA (acute kidney injury) Is this a current diagnosis for this admission?: Yes Plan: 02/01/2020-baseline creatinine is around 0.95 on admission creatinine is 1.72. Received 1 L of normal saline and presently on normal saline at 150 cc/h. 02/02/2020-admission serum creatinine is 1.72 with IV fluids improved to 1.4. To continue IV hydration at 50 cc/h. Patient is going to be n.p.o. for today to prevent aspiration pneumonia. (5) Acute metabolic encephalopathy Is this a current diagnosis for this admission?: Yes Plan: 02/02/2020-altered mental status/acute metabolic inflow for the most likely secondary to suicidal attempt with intake of chronic medications. Mental status is improving. Behavioral therapy consult was requested.
[2020-02-02] MEDS ORDERED: NORMAL SALINE 1000 ML 1,000 ML IV ONE (12:42)
[2020-02-02] MEDS ORDERED: GLUCAGON,HUMAN RECOMB 1 MG INJ IM PRN (12:50)
[2020-02-02] MEDS ORDERED: DEXTROSE 40% GEL 15 GM TUBE PO PRN ×2 (12:50)
[2020-02-02] MEDS ORDERED: DEXTROSE 50%-WATER 25 GM/50 ML DISP.SYRIN IV PRN ×2 (12:50)
[2020-02-02] MEDS ORDERED: LORAZEPAM 1 MG TABLET PO PRN (14:02)
[2020-02-02 16:03] LABS: ALBUMIN 3.2 g/dL (3.5-5.0); ASPARTATE AMINO TRANSFERASE 37 U/L (17-59); BLOOD UREA NITROGEN 26 mg/dL (7-20); CARBON DIOXIDE 28 mmol/L (22-30); GLUCOSE 78 mg/dL (75-110); NEONATAL BILIRUBIN RESULT 0.8 mg/dL (0.1-1.1); TOTAL PROTEIN 5.5 g/dL (6.3-8.2)
[2020-02-02 16:05] LABS: ALKALINE PHOSPHATASE 34 U/L (38-126); CALCIUM 7.9 mg/dL (8.4-10.2); POTASSIUM 4.1 mmol/L (3.6-5.0)
[2020-02-02 16:06] LABS: ANION GAP 5 (5-19); CHLORIDE 107 mmol/L (98-107)
[2020-02-02 16:18] LABS: BILIRUBIN,TOTAL 0.6 mg/dL (0.2-1.3)
--- NOTE | 2020-02-02 17:58 | EKG REPORT ---
SEVERITY:- BORDERLINE ECG - SINUS RHYTHM BORDERLINE LEFT AXIS DEVIATION BORDERLINE PROLONGED QT INTERVAL NONSPECIFIC ST-T CHANGES- INFERIOR LEADS : Confirmed by: Greg Oshea MD 02-Feb-2020 17:58:14
[2020-02-02] MEDS ORDERED: LORAZEPAM 1 MG TABLET PO SCH (18:00)
[2020-02-02] MEDS: INSULIN REG, HUMAN 100 UNIT/ML 3 ML VIAL (PYX) SUBCUT SCH (18:22)
[2020-02-02] MEDS: LORAZEPAM INJ 2 MG/1 ML VIAL IV SCH (18:22)
--- NOTE | 2020-02-02 19:29 | RADIOLOGY REPORT (SQ) ---
EXAM DESCRIPTION: CHEST SINGLE VIEW IMAGES COMPLETED DATE/TIME: 02/02/2020 6:29 pm REASON FOR STUDY: dyspnea COMPARISON: None. EXAM PARAMETERS: NUMBER OF VIEWS: One view. TECHNIQUE: Single frontal radiographic view of the chest acquired. RADIATION DOSE: NA LIMITATIONS: None. FINDINGS: LUNGS AND PLEURA: There is patchy opacification in the right mid lung MEDIASTINUM AND HILAR STRUCTURES: No masses. Contour normal. HEART AND VASCULAR STRUCTURES: Heart normal in size. Normal vasculature. BONES: No acute findings. HARDWARE: None in the chest. OTHER: No other significant finding. IMPRESSION: Cannot exclude limited pneumonia in the right mid lung. TECHNICAL DOCUMENTATION: JOB ID: [id number] 2010 [employer]- All Rights Reserved Reading location - IP/workstation name: [email or web address]
[2020-02-03] MEDS: INSULIN REG, HUMAN 100 UNIT/ML 3 ML VIAL (PYX) SUBCUT SCH ×4 (00:13→18:01)
[2020-02-03] MEDS: LORAZEPAM INJ 2 MG/1 ML VIAL IV SCH ×4 (00:14→18:24)
[2020-02-03] MEDS: NORMAL SALINE 1000 ML 1,000 ML IV PRN ×3 (00:16→10:38)
[2020-02-03] MEDS: HEPARIN SOD (PORCINE) 5,000 UNIT/ML 1 ML VIAL SUBCUT SCH ×3 (05:13→22:28)
[2020-02-03] MEDS ORDERED: NORMAL SALINE 1000 ML 1,000 ML IV PRN (06:28)
[2020-02-03 08:00] LABS: ABSOLUTE EOSINOPHILS # (AUTO) 0.1 10^3/uL (0.0-0.6); ABSOLUTE LYMPHOCYTES (AUTO) 1.2 10^3/uL (0.5-4.7); ABSOLUTE MONOCYTES (AUTO) 0.5 10^3/uL (0.1-1.4); ABSOLUTE NEUT (AUTO) 2.8 10^3/uL (1.7-8.2); BASOPHILS % (AUTO) 0.1 % (0-2); EOSINOPHILS % (AUTO) 1.1 % (0-6); HEMOGLOBIN 10.2 g/dL (13.5-17.0); LYMPHOCYTES % (AUTO) 26.5 % (13-45); MEAN CORPUSCULAR HEMOGLOBIN 30.4 pg (27.0-33.4); MEAN CORPUSCULAR VOLUME 89 fl (80-97); MONOCYTES % (AUTO) 11.7 % (3-13); PLATELET COUNT 119 10^3/uL (150-450); RED BLOOD COUNT 3.36 10^6/uL (4.35-5.55); RED CELL DISTRIBUTION WIDTH 14.8 % (11.5-14.0); SEGMENTED NEUTROPHILS % (AUTO) 60.6 % (42-78); TOTAL CELLS COUNTED % (AUTO) 100 %; WHITE BLOOD COUNT 4.7 10^3/uL (4.0-10.5)
[2020-02-03] MEDS: IPRATROPIUM/ALBUTEROL 0.5-2.5 MG/3 ML AMPUL NEB SCH ×4 (08:31→20:09)
[2020-02-03 08:39] LABS: ALBUMIN 3.2 g/dL (3.5-5.0); ALKALINE PHOSPHATASE 34 U/L (38-126); ANION GAP 5 (5-19); ASPARTATE AMINO TRANSFERASE 37 U/L (17-59); BILIRUBIN,TOTAL 0.5 mg/dL (0.2-1.3); BLOOD UREA NITROGEN 19 mg/dL (7-20); CALCIUM 7.9 mg/dL (8.4-10.2); CARBON DIOXIDE 25 mmol/L (22-30); CHLORIDE 112 mmol/L (98-107); GLUCOSE 76 mg/dL (75-110); TOTAL PROTEIN 5.4 g/dL (6.3-8.2)
--- NOTE | 2020-02-03 09:03 | PDOC PROGRESS REPORT ---
Subjective Progress Note for:: 02/03/20 Subjective:: 02/03/2020-no acute events last 24 hours. Afebrile. Blood pressures are improved to 126/73. Labs are stable. Speech consult is pending. Patient is still n.p.o. More alert more awake compared to yesterday. Reason For Visit: DRUG OVERDOSE Physical Exam Vital Signs: Temp Pulse Resp BP Pulse Ox 97.5 F 76 16 126/73 H 92 02/03/20 08:09 02/03/20 08:09 02/03/20 08:09 02/03/20 08:09 02/03/20 08:09 Intake & Output 02/02/20 02/03/20 02/04/20 06:59 06:59 06:59 Intake Total 4000 4797 Output Total 4925 2250 Balance -925 2547 Weight 83.1 kg 84.6 kg General appearance: PRESENT: no acute distress Head exam: PRESENT: normocephalic Eye exam: PRESENT: PERRLA Ear exam: PRESENT: normal external ear exam Mouth exam: PRESENT: neck supple Teeth exam: PRESENT: poor dentation Neck exam: ABSENT: carotid bruit, JVD, lymphadenopathy, thyromegaly Respiratory exam: PRESENT: decreased breath sounds Cardiovascular exam: PRESENT: RRR. ABSENT: diastolic murmur, rubs, systolic murmur Pulses: PRESENT: normal dorsalis pedis pul GI/Abdominal exam: PRESENT: normal bowel sounds, soft. ABSENT: distended, guarding, mass, organolmegaly, rebound, tenderness Rectal exam: PRESENT: deferred Extremities exam: PRESENT: full ROM. ABSENT: calf tenderness, clubbing, pedal edema Neurological exam: PRESENT: alert, awake, oriented to person, oriented to place, oriented to time, oriented to situation, CN II-XII grossly intact. ABSENT: motor sensory deficit Psychiatric exam: PRESENT: appropriate affect, normal mood. ABSENT: homicidal ideation, suicidal ideation Results Laboratory Results: 02/03/20 07:48 02/03/20 07:48 02/02/20 02/03/20 02/03/20 15:01 07:48 07:48 WBC 4.7 RBC 3.36 L Hgb 10.2 L Hct 30.0 L MCV 89 MCH 30.4 MCHC 34.0 RDW 14.8 H Plt Count 119 L Seg Neutrophils % 60.6 Sodium 140.1 142.3 Potassium 4.1 4.0 Chloride 107 112 H Carbon Dioxide 28 25 Anion Gap 5 5 BUN 26 H 19 Creatinine 1.58 H 1.42 H Est GFR ( Amer) 53 L > 60 Glucose 78 76 Calcium 7.9 L 7.9 L Magnesium 2.0 Total Bilirubin 0.6 0.5 AST 37 37 Alkaline Phosphatase 34 L 34 L Total Protein 5.5 L 5.4 L Albumin 3.2 L 3.2 L 02/01/20 02/01/20 02/02/20 15:13 15:13 04:58 Creatine Kinase 80 842 H Troponin I < 0.012 Impressions: Head CT 02/01/20 00:00 IMPRESSION: NO ACUTE INTRACRANIAL FINDINGS. EVIDENCE OF ACUTE STROKE: NO. Chest X-Ray 02/02/20 00:00 IMPRESSION: Cannot exclude limited pneumonia in the right mid lung. Assessment and Plan - Diagnosis (1) Drug overdose Is this a current diagnosis for this admission?: Yes Plan: 02/01/2020 patient is going to be admitted to [facility] for drug overdose with suicidal attempt. Took chronic medications of 2 weeks supply. Hypotensive in the ER. In ROMELIA. Started on normal saline at 150 cc/h. Patient received 1 L of normal saline in the ER. Placed on oxygen 2 L via nasal cannula. Aspiration fall seizure precautions are requested. GI prophylaxis DVT prophylaxis initiated. To repeat the EKG tonight. Repeat labs are requested. To keep him n.p.o. at this time. Psych consult placed. 02/02/2020-patient is more alert more awake compared to yesterday. He admitted that he took several home medications as a suicidal attempt. He had history of previous suicidal attempt history. To keep him n.p.o. To continue gentle IV hydration. Aspiration fall seizure precautions are requested. To repeat the labs tomorrow. EKG with no acute abnormalities. 02/03/2020-admitted with her drug overdose. As per the patient in the ER he took overdose of his chronic medications. Urine drug screen is negative. Patient is more alert more awake. Psych consult was requested. pt is under IVC commitment. Speech consult is pending. (2) Suicidal overdose Is this a current diagnosis for this admission?: Yes Plan: 02/01/2020-patient admitted to take extra dose of medications with suicidal attempt. Psych consult was done. Poison control is notified. Once the patient more alert more awake probably psych team will make the recommendations. 02/03/2020-patient is under involuntary commitment. No acute events in the last 24 hours. More alert more awake requesting to eat. Follow-up note from the psych will be appreciated. (3) Hypotension Is this a current diagnosis for this admission?: Yes Plan: 02/01/2020-patient took 2-week supply of lisinopril and furosemide. Baseline creatinine is around 0.5 and admission creatinine is 1.72. Received 1 L of normal saline in the ER started on a normal saline at 150 cc/h. TO Watch for electrolyte abnormalities. 02/02/2020-patient is hypotensive in the emergency room systolic blood pressure in the 70s. Received 3 L of normal saline bolus, maintenance dose of normal saline at 150 cc/h. Plan is to decrease the fluid rate to 50 cc/h today creatinine improved to 1.4. 02/03/2020-patient came in with hypotension systolic in the 70s with aggressive IV fluid therapy blood pressure improved to 126/73 today. Kidney function is also improved a little. (4) ROMELIA (acute kidney injury) Is this a current diagnosis for this admission?: Yes Plan: 02/01/2020-baseline creatinine is around 0.95 on admission creatinine is 1.72. Received 1 L of normal saline and presently on normal saline at 150 cc/h. 02/02/2020-admission serum creatinine is 1.72 with IV fluids improved to 1.4. To continue IV hydration at 50 cc/h. Patient is going to be n.p.o. for today to prevent aspiration pneumonia. 02/03/2020-admission serum creatinine is 1.7 today's creatinine is 1.42. Receiving normal saline at 125 cc/h. Baseline creatinine is around 0.95. Plan is to cut down the IV fluids to 75 cc/h. (5) Acute metabolic encephalopathy Is this a current diagnosis for this admission?: Yes Plan: 02/02/2020-altered mental status/acute metabolic inflow for the most likely s econdary to suicidal attempt with intake of chronic medications. Mental status is improving. Behavioral therapy consult was requested. 02/03/2020-acute metabolic encephalopathy is due to medication overdose is resolving. CT head is negative.
[2020-02-03] MEDS: PANTOPRAZOLE SODIUM 40 MG VIAL IV SCH ×2 (10:38→22:29)
--- NOTE | 2020-02-03 17:19 | PSYCHOLOGICAL NOTE ---
Psych Note - Psych Note Date seen by psych provider: 02/03/20 Time seen by psych provider: 11:35 Psych Note: Reason for Consult: Intentional Overdose Check in conducted with patient: Patient reports he remembers coming to [facility] ED because "I took a bunch of pills." He confirms he has had depression on and off all his life. Patient states that he is glad that he is alive "but I got everybody mad at me now." He disclosed that he attempted to get help last when he started medications for depression "but I did not give it enough time." (Chart review indicated patient has been on psychiatric medications for at least a year) Patient is noted to have flat mood and affect; however, does appropriately interact with clinician. Clinical presentation Intentional overdose Flat mood and affect Impression plan: Patient is recommended to continue under IVC. Patient admits to intentionally overdosing in an attempt to kill himself. Patient has a mental health history and was seen in the ED for suicidal ideation in August 2016. He was sent under IVC to [facility] during that visit. Patient is high risk to his history and age. Dr. Barrett was consulted on the care and management of this patient; attending physician is in agreement with recommendations and disposition.
[2020-02-04] MEDS: LORAZEPAM INJ 2 MG/1 ML VIAL IV SCH ×4 (00:24→17:03)
[2020-02-04] MEDS: NORMAL SALINE 1000 ML 1,000 ML IV PRN ×2 (00:25→13:16)
[2020-02-04] MEDS: HEPARIN SOD (PORCINE) 5,000 UNIT/ML 1 ML VIAL SUBCUT SCH ×3 (05:30→21:56)
[2020-02-04] MEDS: IPRATROPIUM/ALBUTEROL 0.5-2.5 MG/3 ML AMPUL NEB SCH ×3 (08:25→17:18)
[2020-02-04] MEDS: PANTOPRAZOLE SODIUM 40 MG VIAL IV SCH ×2 (09:21→21:55)
--- NOTE | 2020-02-04 17:30 | PDOC PROGRESS REPORT ---
Subjective Progress Note for:: 02/04/20 Subjective:: Very sedate today. Brother reports he was more interactive yesterday and Sunday. Reason For Visit: DRUG OVERDOSE Physical Exam Vital Signs: Temp Pulse Resp BP Pulse Ox 97.9 F 65 16 131/68 H 97 02/04/20 12:05 02/04/20 14:00 02/04/20 12:05 02/04/20 12:05 02/04/20 12:05 Intake & Output 02/03/20 02/04/20 02/05/20 06:59 06:59 06:59 Intake Total 4797 2240 1318 Output Total 2250 3375 1000 Balance 5407 -2545 318 Weight 84.6 kg 84.6 kg General appearance: PRESENT: no acute distress, cooperative Respiratory exam: PRESENT: clear to auscultation willian, symmetrical, unlabored. ABSENT: rales, rhonchi, tachypnea, wheezes Cardiovascular exam: PRESENT: RRR, +S1, +S2 GI/Abdominal exam: PRESENT: normal bowel sounds, soft. ABSENT: distended, guarding, tenderness Rectal exam: PRESENT: deferred Neurological exam: PRESENT: awake, oriented to person, oriented to place, oriented to situation. ABSENT: alert - Somewhat sluggish today Psychiatric exam: PRESENT: flat affect. ABSENT: agitated, anxious Focused psych exam: ABSENT: delusional, paranoid, restlessness Results Laboratory Results: 02/03/20 07:48 02/03/20 07:48 02/01/20 02/01/20 02/02/20 15:13 15:13 04:58 Creatine Kinase 80 842 H Troponin I < 0.012 Impressions: Head CT 02/01/20 00:00 IMPRESSION: NO ACUTE INTRACRANIAL FINDINGS. EVIDENCE OF ACUTE STROKE: NO. Chest X-Ray 02/02/20 00:00 IMPRESSION: Cannot exclude limited pneumonia in the right mid lung. Assessment and Plan - Diagnosis (1) Drug overdose Qualifiers: Encounter type: subsequent encounter Injury intent: intentional self-harm Qualified Code(s): T50.902D - Poisoning by unspecified drugs, medicaments and biological substances, intentional self-harm, subsequent encounter Is this a current diagnosis for this admission?: Yes Plan: 02/01/2020 patient is going to be admitted to [facility] for drug overdose with suicidal attempt. Took chronic medications of 2 weeks supply. Hypotensive in the ER. In ROMELIA. Started on normal saline at 150 cc/h. Patient received 1 L of normal saline in the ER. Placed on oxygen 2 L via nasal cannula. Aspiration fall seizure precautions are requested. GI prophylaxis DVT prophylaxis initiated. To repeat the EKG tonight. Repeat labs are requested. To keep him n.p.o. at this time. Psych consult placed. 02/02/2020-patient is more alert more awake compared to yesterday. He admitted that he took several home medications as a suicidal attempt. He had history of previous suicidal attempt history. To keep him n.p.o. To continue gentle IV hydration. Aspiration fall seizure precautions are requested. To repeat the labs tomorrow. EKG with no acute abnormalities. 02/03/2020-admitted with her drug overdose. As per the patient in the ER he took overdose of his chronic medications. Urine drug screen is negative. Patient is more alert more awake. Psych consult was requested. pt is under IVC commitment. Speech consult is pending. 02/04/2020 IVC status remains. He is on lorazepam. I believe this is in place of the clonazepam. I will decrease the dose and this should allow him to be more interactive (2) Suicidal overdose Qualifiers: Encounter type: subsequent encounter Qualified Code(s): T50.902D - Poisoning by unspecified drugs, medicaments and biological substances, intentional self-harm, subsequent encounter Is this a current diagnosis for this admission?: Yes Plan: 02/01/2020-patient admitted to take extra dose of medications with suicidal attempt. Psych consult was done. Poison control is notified. Once the patient more alert more awake probably psych team will make the recommendations. 02/03/2020-patient is under involuntary commitment. No acute events in the last 24 hours. More alert more awake requesting to eat. Follow-up note from the psych will be appreciated. 02/04/2020 He has been stable. He has been monitored by a sitter. Psychiatry continues to follow. He may require inpatient psychiatric care at the time of discharge (3) Hypotension Qualifiers: Hypotension type: unspecified hypotension type Qualified Code(s): I95.9 - Hypotension, unspecified Is this a current diagnosis for this admission?: Yes Plan: 02/01/2020-patient took 2-week supply of lisinopril and furosemide. Baseline creatinine is around 0.5 and admission creatinine is 1.72. Received 1 L of normal saline in the ER started on a normal saline at 150 cc/h. TO Watch for electrolyte abnormalities. 02/02/2020-patient is hypotensive in the emergency room systolic blood pressure in the 70s. Received 3 L of normal saline bolus, maintenance dose of normal saline at 150 cc/h. Plan is to decrease the fluid rate to 50 cc/h today creatinine improved to 1.4. 02/03/2020-patient came in with hypotension systolic in the 70s with aggressive IV fluid therapy blood pressure improved to 126/73 today. Kidney function is also improved a little. 02/04/2020 Likely from initial overdose. No longer hypotensive. Will resume lisinopril. (4) ROMELIA (acute kidney injury) Is this a current diagnosis for this admission?: Yes Plan: 02/01/2020-baseline creatinine is around 0.95 on admission creatinine is 1.72. Received 1 L of normal saline and presently on normal saline at 150 cc/h. 02/02/2020-admission serum creatinine is 1.72 with IV fluids improved to 1.4. To continue IV hydration at 50 cc/h. Patient is going to be n.p.o. for today to prevent aspiration pneumonia. 02/03/2020-admission serum creatinine is 1.7 today's creatinine is 1.42. Re ceiving normal saline at 125 cc/h. Baseline creatinine is around 0.95. Plan is to cut down the IV fluids to 75 cc/h. 02/04/2020 We will continue IV fluids today. Goal is to taper off of IV fluid. We will recheck serum chemistries. (5) Acute metabolic encephalopathy Is this a current diagnosis for this admission?: Yes Plan: 02/02/2020-altered mental status/acute metabolic inflow for the most likely secondary to suicidal attempt with intake of chronic medications. Mental status is improving. Behavioral therapy consult was requested. 02/03/2020-acute metabolic encephalopathy is due to medication overdose is resolving. CT head is negative. 02/04/2020 Secondary to medication overdose. Slowly improving. - Time Time Spent with patient: 15-24 minutes Medications reviewed and adjusted accordingly: Yes Anticipated discharge: Other - Likely inpatient psychiatric facility
[2020-02-05] MEDS: NORMAL SALINE 1000 ML 1,000 ML IV PRN (02:41)
[2020-02-05] MEDS: LORAZEPAM 0.5 MG TABLET PO SCH ×4 (04:53→17:05)
[2020-02-05] MEDS: HEPARIN SOD (PORCINE) 5,000 UNIT/ML 1 ML VIAL SUBCUT SCH ×3 (06:34→21:57)
[2020-02-05] MEDS: PANTOPRAZOLE SODIUM 40 MG VIAL IV SCH ×2 (09:56→21:57)
[2020-02-05] MEDS: LISINOPRIL 5 MG TABLET PO SCH (09:57)
--- NOTE | 2020-02-05 12:07 | PDOC PROGRESS REPORT ---
Subjective Progress Note for:: 02/05/20 Subjective:: The patient is much more alert today. The sitter states that he woke up and ate breakfast. He seems more interactive today. Reason For Visit: DRUG OVERDOSE Physical Exam Vital Signs: Temp Pulse Resp BP Pulse Ox 98.3 F 79 20 145/91 H 94 02/05/20 08:30 02/05/20 08:30 02/05/20 08:30 02/05/20 08:30 02/05/20 08:30 Intake & Output 02/04/20 02/05/20 02/06/20 06:59 06:59 06:59 Intake Total 2240 7724 Output Total 3379 5565 Balance -1135 -488 Weight 84.6 kg 82.2 kg General appearance: PRESENT: no acute distress Respiratory exam: PRESENT: clear to auscultation willian, unlabored. ABSENT: rales, rhonchi, tachypnea, wheezes Cardiovascular exam: PRESENT: RRR, +S1, +S2 GI/Abdominal exam: PRESENT: normal bowel sounds, soft. ABSENT: tenderness Extremities exam: ABSENT: pedal edema Musculoskeletal exam: PRESENT: ambulatory Neurological exam: PRESENT: alert, awake, oriented to person, oriented to place, oriented to situation Psychiatric exam: PRESENT: flat affect. ABSENT: agitated, anxious Results Laboratory Results: 02/03/20 07:48 02/03/20 07:48 02/01/20 02/01/20 02/02/20 15:13 15:13 04:58 Creatine Kinase 80 842 H Troponin I < 0.012 Impressions: Head CT 02/01/20 00:00 IMPRESSION: NO ACUTE INTRACRANIAL FINDINGS. EVIDENCE OF ACUTE STROKE: NO. Chest X-Ray 02/02/20 00:00 IMPRESSION: Cannot exclude limited pneumonia in the right mid lung. Assessment and Plan - Diagnosis (1) Drug overdose Qualifiers: Encounter type: subsequent encounter Injury intent: intentional self-harm Qualified Code(s): T50.902D - Poisoning by unspecified drugs, medicaments and biological substances, intentional self-harm, subsequent encounter Is this a current diagnosis for this admission?: Yes Plan: 02/01/2020 patient is going to be admitted to [facility] for drug overdose with suicidal attempt. Took chronic medications of 2 weeks supply. Hypotensive in the ER. In ROMELIA. Started on normal saline at 150 cc/h. Patient received 1 L of normal saline in the ER. Placed on oxygen 2 L via nasal cannula. Aspiration fall seizure precautions are requested. GI prophylaxis DVT prophylaxis initiated. To repeat the EKG tonight. Repeat labs are requested. To keep him n.p.o. at this time. Psych consult placed. 02/02/2020-patient is more alert more awake compared to yesterday. He admitted that he took several home medications as a suicidal attempt. He had history of previous suicidal attempt history. To keep him n.p.o. To continue gentle IV hydration. Aspiration fall seizure precautions are requested. To repeat the labs tomorrow. EKG with no acute abnormalities. 02/03/2020-admitted with her drug overdose. As per the patient in the ER he took overdose of his chronic medications. Urine drug screen is negative. Patient is more alert more awake. Psych consult was requested. pt is under IVC commitment. Speech consult is pending. 02/04/2020 IVC status remains. He is on lorazepam. I believe this is in place of the clonazepam. I will decrease the dose and this should allow him to be more interactive 02/05/2020 I did decrease the lorazepam yesterday. It seems to have had a positive effect. He was somewhat tremulous and I like to get back some of his medication. (2) Suicidal overdose Qualifiers: Encounter type: subsequent encounter Qualified Code(s): T50.902D - Poisoning by unspecified drugs, medicaments and biological substances, intentional self-harm, subsequent encounter Is this a current diagnosis for this admission?: Yes Plan: 02/01/2020-patient admitted to take extra dose of medications with suicidal attempt. Psych consult was done. Poison control is notified. Once the patient more alert more awake probably psych team will make the recommendations. 02/03/2020-patient is under involuntary commitment. No acute events in the last 24 hours. More alert more awake requesting to eat. Follow-up note from the psych will be appreciated. 02/04/2020 He has been stable. He has been monitored by a sitter. Psychiatry continues to follow. He may require inpatient psychiatric care at the time of discharge 02/05/2020 Still under IVC. Will likely need inpatient psychiatric care post discharge. (3) Hypotension Qualifiers: Hypotension type: unspecified hypotension type Qualified Code(s): I95.9 - Hypotension, unspecified Is this a current diagnosis for this admission?: Yes Plan: 02/01/2020-patient took 2-week supply of lisinopril and furosemide. Baseline creatinine is around 0.5 and admission creatinine is 1.72. Received 1 L of normal saline in the ER started on a normal saline at 150 cc/h. TO Watch for electrolyte abnormalities. 02/02/2020-patient is hypotensive in the emergency room systolic blood pressure in the 70s. Received 3 L of normal saline bolus, maintenance dose of normal saline at 150 cc/h. Plan is to decrease the fluid rate to 50 cc/h today creatinine improved to 1.4. 02/03/2020-patient came in with hypotension systolic in the 70s with aggressive IV fluid therapy blood pressure improved to 126/73 today. Kidney function is also improved a little. 02/04/2020 Likely from initial overdose. No longer hypotensive. Will resume lisinopril. 02/05/2020 Resolved (4) ROMELIA (acute kidney injury) Is this a current diagnosis for this admission?: Yes Plan: 02/01/2020-baseline creatinine is around 0.95 on admission creatinine is 1.72. Received 1 L of normal saline and presently on normal saline at 150 cc/h. 02/02/2020-admission serum creatinine is 1.72 with IV fluids improved to 1.4. To continue IV hydration at 50 cc/h. Patient is going to be n.p.o. for today to prevent aspiration pneumonia. 02/03/2020-admission serum creatinine is 1.7 today's creatinine is 1.42. Receiving normal saline at 125 cc/h. Baseline creatinine is around 0.95. Plan is to cut down the IV fluids to 75 cc/h. 02/04/2020 We will continue IV fluids today. Goal is to taper off of IV fluid. We will recheck serum chemistries. 02/05/2020 Continue IV fluids and check kidney function tomorrow (5) Acute metabolic encephalopathy Is this a current diagnosis for this admission?: Yes Plan: 02/02/2020-altered mental status/acute metabolic inflow for the most likely secondary to suicidal attempt with intake of chronic medications. Mental status is improving. Behavioral therapy consult was requested. 02/03/2020-acute metabolic encephalopathy is due to medication overdose is resolving. CT head is negative. 02/04/2020 Secondary to medication overdose. Slowly improving. 02/05/2020 Patient is likely back to his baseline. Acute encephalopathy resolved. (6) Essential (primary) hypertension Is this a current diagnosis for this admission?: Yes Plan: 02/05/2020 We will resume furosemide in addition to lisinopril (7) Depression Qualifiers: Depression Type: major depressive disorder Major depression recurrence: recurrent Active/Remission status: currently active Major depression episode severity: severe Psychotic features: without psychotic features Qualified Code(s): F33.2 - Major depressive disorder, recurrent severe without psychotic features Is this a current diagnosis for this admission?: Yes Plan: 02/05/2020 I will resume the Lexapro and Zyprexa. The patient was slightly tremulous today. We will continue on a lower dose of lorazepam. - Plan Summary Summary: 02/05/2020 The patient is medically cleared for discharge. This will likely be transferred to an acute inpatient psychiatric facility. Will discuss with psychiatry. - Time Time Spent with patient: 15-24 minutes Medications reviewed and adjusted accordingly: Yes Anticipated discharge: Other Within: when bed available
[2020-02-06] MEDS: LORAZEPAM 0.5 MG TABLET PO SCH ×4 (03:30→17:42)
[2020-02-06] MEDS: HEPARIN SOD (PORCINE) 5,000 UNIT/ML 1 ML VIAL SUBCUT SCH ×3 (05:31→21:22)
[2020-02-06 07:00] LABS: HEMOGLOBIN 11.7 g/dL (13.5-17.0); MEAN CORPUSCULAR HEMOGLOBIN 29.9 pg (27.0-33.4); MEAN CORPUSCULAR HGB CONC 34.4 g/dL (32.0-36.0); MEAN CORPUSCULAR VOLUME 87 fl (80-97); PLATELET COUNT 150 10^3/uL (150-450); RED BLOOD COUNT 3.92 10^6/uL (4.35-5.55); RED CELL DISTRIBUTION WIDTH 14.3 % (11.5-14.0); WHITE BLOOD COUNT 6.2 10^3/uL (4.0-10.5)
[2020-02-06 07:18] LABS: ANION GAP 5 (5-19); BLOOD UREA NITROGEN 20 mg/dL (7-20); CALCIUM 9.5 mg/dL (8.4-10.2); CARBON DIOXIDE 30 mmol/L (22-30); CHLORIDE 104 mmol/L (98-107); GLUCOSE 92 mg/dL (75-110); POTASSIUM 4.2 mmol/L (3.6-5.0)
[2020-02-06] MEDS ORDERED: OLANZAPINE 5 MG TABLET PO SCH (10:00)
[2020-02-06] MEDS: PANTOPRAZOLE SODIUM 40 MG VIAL IV SCH ×2 (11:02→21:22)
[2020-02-06] MEDS: LISINOPRIL 5 MG TABLET PO SCH (11:03)
[2020-02-06] MEDS: ESCITALOPRAM OXALATE 10 MG TABLET PO SCH (11:03)
[2020-02-06] MEDS: FUROSEMIDE 20 MG TABLET PO SCH (11:03)
--- NOTE | 2020-02-06 13:47 | PDOC PROGRESS REPORT ---
Subjective Progress Note for:: 02/06/20 Subjective:: Patient complains of poor appetite. States that he is just not hungry. Reason For Visit: DRUG OVERDOSE Physical Exam Vital Signs: Temp Pulse Resp BP Pulse Ox 97.4 F 81 18 129/67 H 94 02/06/20 08:32 02/06/20 08:32 02/06/20 08:32 02/06/20 08:32 02/06/20 08:32 Intake & Output 02/05/20 02/06/20 02/07/20 06:59 06:59 06:59 Intake Total 2794 1427 Output Total 3275 451 Balance -481 976 Weight 82.2 kg 84.3 kg General appearance: PRESENT: no acute distress, cooperative, well-developed Head exam: PRESENT: atraumatic, normocephalic Ear exam: PRESENT: normal external ear exam. ABSENT: bleeding, drainage Mouth exam: PRESENT: moist, tongue midline Respiratory exam: PRESENT: clear to auscultation willian, symmetrical, unlabored. ABSENT: rales, rhonchi, tachypnea, wheezes Cardiovascular exam: PRESENT: RRR - With occasional irregular beats, +S1, +S2. ABSENT: irregular rhythm GI/Abdominal exam: PRESENT: normal bowel sounds, soft. ABSENT: distended, guarding, tenderness Rectal exam: PRESENT: deferred Gentrourinary exam: ABSENT: indwelling catheter Extremities exam: ABSENT: pedal edema Musculoskeletal exam: PRESENT: ambulatory, normal inspection Neurological exam: PRESENT: alert, altered, awake, oriented to person, oriented to place Psychiatric exam: PRESENT: flat affect. ABSENT: agitated, anxious Results Laboratory Results: 02/06/20 06:40 02/06/20 06:40 02/06/20 02/06/20 06:40 06:40 WBC 6.2 RBC 3.92 L Hgb 11.7 L Hct 34.0 L MCV 87 MCH 29.9 MCHC 34.4 RDW 14.3 H Plt Count 150 Sodium 139.1 Potassium 4.2 Chloride 104 Carbon Dioxide 30 Anion Gap 5 BUN 20 Creatinine 1.28 H Est GFR ( Amer) > 60 Glucose 92 Calcium 9.5 Magnesium 1.9 02/01/20 02/01/20 02/02/20 15:13 15:13 04:58 Creatine Kinase 80 842 H Troponin I < 0.012 Impressions: Head CT 02/01/20 00:00 IMPRESSION: NO ACUTE INTRACRANIAL FINDINGS. EVIDENCE OF ACUTE STROKE: NO. Chest X-Ray 02/02/20 00:00 IMPRESSION: Cannot exclude limited pneumonia in the right mid lung. Assessment and Plan - Diagnosis (1) Drug overdose Qualifiers: Encounter type: subsequent encounter Injury intent: intentional self-harm Qualified Code(s): T50.902D - Poisoning by unspecified drugs, medicaments and biological substances, intentional self-harm, subsequent encounter Is this a current diagnosis for this admission?: Yes Plan: 02/01/2020 patient is going to be admitted to [facility] for drug overdose with suicidal attempt. Took chronic medications of 2 weeks supply. Hypotensive in the ER. In ROMELIA. Started on normal saline at 150 cc/h. Patient received 1 L of normal saline in the ER. Placed on oxygen 2 L via nasal cannula. Aspiration fall seizure precautions are requested. GI prophylaxis DVT prophylaxis initiated. To repeat the EKG tonight. Repeat labs are requested. To keep him n.p.o. at this time. Psych consult placed. 02/02/2020-patient is more alert more awake compared to yesterday. He admitted that he took several home medications as a suicidal attempt. He had history of previous suicidal attempt history. To keep him n.p.o. To continue gentle IV hydration. Aspiration fall seizure precautions are requested. To repeat the labs tomorrow. EKG with no acute abnormalities. 02/03/2020-admitted with her drug overdose. As per the patient in the ER he took overdose of his chronic medications. Urine drug screen is negative. Patient is more alert more awake. Psych consult was requested. pt is under IVC commitment. Speech consult is pending. 02/04/2020 IVC status remains. He is on lorazepam. I believe this is in place of the clonazepam. I will decrease the dose and this should allow him to be more interactive 02/05/2020 I did decrease the lorazepam yesterday. It seems to have had a positive effect. He was somewhat tremulous and I like to get back some of his medication. 02/06/2020 Unsure of the nausea and poor appetite. This could be medication related as he is gone through significant changes in his medications recently. We will ensure that he is on GI prophylaxis. No history of gastroparesis. He may benefit from an appetite stimulant. (2) Suicidal overdose Qualifiers: Encounter type: subsequent encounter Qualified Code(s): T50.902D - Poisoning by unspecified drugs, medicaments and biological substances, intentional self-harm, subsequent encounter Is this a current diagnosis for this admission?: Yes Plan: 02/01/2020-patient admitted to take extra dose of medications with suicidal attempt. Psych consult was done. Poison control is notified. Once the patient more alert more awake probably psych team will make the recommendations. 02/03/2020-patient is under involuntary commitment. No acute events in the last 24 hours. More alert more awake requesting to eat. Follow-up note from the psych will be appreciated. 02/04/2020 He has been stable. He has been monitored by a sitter. Psychiatry continues to follow. He may require inpatient psychiatric care at the time of discharge 02/05/2020 Still under IVC. Will likely need inpatient psychiatric care post discharge. 02/06/2020 Spoke with psychiatry. The patient is medically stable. Efforts for placement will be initiated. (3) Hypotension Qualifiers: Hypotension type: unspecified hypotension type Qualified Code(s): I95.9 - Hypotension, unspecified Is this a current diagnosis for this admission?: Yes Plan: 02/01/2020-patient took 2-week supply of lisinopril and furosemide. Baseline creatinine is around 0.5 and admission creatinine is 1.72. Received 1 L of normal saline in the ER started on a normal saline at 150 cc/h. TO Watch for electrolyte abnormalities. 02/02/2020-patient is hypotensive in the emergency room systolic blood pressure in the 70s. Received 3 L of normal saline bolus, maintenance dose of normal saline at 150 cc/h. Plan is to decrease the fluid rate to 50 cc/h today creatinine improved to 1.4. 02/03/2020-patient came in with hypotension systolic in the 70s with aggressive IV fluid therapy blood pressure improved to 126/73 today. Kidney function is also improved a little. 02/04/2020 Likely from initial overdose. No longer hypotensive. Will resume lisinopril. 02/05/2020 Resolved (4) ROMELIA (acute kidney injury) Is this a current diagnosis for this admission?: Yes Plan: 02/01/2020-baseline creatinine is around 0.95 on admission creatinine is 1.72. Received 1 L of normal saline and presently on normal saline at 150 cc/h. 02/02/2020-admission serum creatinine is 1.72 with IV fluids improved to 1.4. To continue IV hydration at 50 cc/h. Patient is going to be n.p.o. for today to prevent aspiration pneumonia. 02/03/2020-admission serum creatinine is 1.7 today's creatinine is 1.42. Receiving normal saline at 125 cc/h. Baseline creatinine is around 0.95. Plan is to cut down the IV fluids to 75 cc/h. 02/04/2020 We will continue IV fluids today. Goal is to taper off of IV fluid. We will recheck serum chemistries. 02/05/2020 Continue IV fluids and check kidney function tomorrow 02/06/2020 Discontinue IV fluids. GFR is normal. Serum creatinine is just slightly above the upper limit normal. We will continue to monitor. (5) Acute metabolic encephalopathy Is this a current diagnosis for this admission?: Yes Plan: 02/02/2020-altered mental status/acute metabolic inflow for the most likely secondary to suicidal attempt with intake of chronic medications. Mental status is improving. Behavioral therapy consult was requested. 02/03/2020-acute metabolic encephalopathy is due to medication overdose is resolving. CT head is negative. 02/04/2020 Secondary to medication overdose. Slowly improving. 02/05/2020 Patient is likely back to his baseline. Acute encephalopathy resolved. 02/16/2020 Effects of acute overdose have waned. The acute encephalopathy has resolved. The patient's current state is likely his baseline. (6) Essential (primary) hypertension Is this a current diagnosis for this admission?: Yes Plan: 02/05/2020 We will resume furosemide in addition to lisinopril 02/06/2020 Continue lisinopril and furosemide. Good blood pressure control. (7) Depression Qualifiers: Depression Type: major depressive disorder Major depression recurrence: recurrent Active/Remission status: currently active Major depression episode severity: severe Psychotic features: without psychotic features Qualified Code(s): F33.2 - Major depressive disorder, recurrent severe without psychotic features Is this a current diagnosis for this admission?: Yes Plan: 02/05/2020 I will resume the Lexapro and Zyprexa. The patient was slightly tremulous today. We will continue on a lower dose of lorazepam. 02/06/2020 He is now on a very small dose of scheduled lorazepam. I have restarted Lexapro and Zyprexa. After 1 or 2 days I will discontinue the scheduled lorazepam but have it available as needed. - Plan Summary Summary: 02/05/2020 The patient is medically cleared for discharge. This will likely be transferred to an acute inpatient psychiatric facility. Will discuss with psychiatry. - Time Time Spent with patient: Less than 15 minutes Medications reviewed and adjusted accordingly: Yes Anticipated discharge: Other - Likely inpatient psychiatric facility
--- NOTE | 2020-02-06 18:49 | PSYCHOLOGICAL NOTE ---
Psych Note - Psych Note Date seen by psych provider: 02/06/20 Psych Note: Patient's paperwork for inpatient psychiatric placement faxed [facility]- wait listed [place]- [facility]- amy listed [place]- amyed listed [facility]
[2020-02-07] MEDS: LORAZEPAM 0.5 MG TABLET PO SCH ×5 (01:20→23:07)
[2020-02-07] MEDS: HEPARIN SOD (PORCINE) 5,000 UNIT/ML 1 ML VIAL SUBCUT SCH ×3 (05:43→21:53)
[2020-02-07] MEDS: LORAZEPAM INJ 2 MG/1 ML VIAL IV PRN (07:57)
[2020-02-07] MEDS: FUROSEMIDE 20 MG TABLET PO SCH (09:25)
[2020-02-07] MEDS: LISINOPRIL 5 MG TABLET PO SCH (09:25)
[2020-02-07] MEDS: FAMOTIDINE 20 MG TABLET PO SCH ×2 (09:25→21:53)
[2020-02-07] MEDS: ESCITALOPRAM OXALATE 10 MG TABLET PO SCH (09:25)
--- NOTE | 2020-02-07 12:43 | PDOC PROGRESS REPORT ---
Subjective Progress Note for:: 02/07/20 Subjective:: Less nausea today. He did eat his sandwich at lunchtime. Reason For Visit: DRUG OVERDOSE Physical Exam Vital Signs: Temp Pulse Resp BP Pulse Ox 98.1 F 76 18 117/64 95 02/07/20 11:32 02/07/20 11:32 02/07/20 11:32 02/07/20 11:32 02/07/20 11:32 Intake & Output 02/06/20 02/07/20 02/08/20 06:59 06:59 06:59 Intake Total 1427 357 Output Total 451 1675 Balance 976 -1318 Weight 84.3 kg 78.5 kg General appearance: PRESENT: no acute distress, cooperative, well-developed Ear exam: PRESENT: normal external ear exam. ABSENT: bleeding, drainage Respiratory exam: PRESENT: clear to auscultation willian, symmetrical, unlabored. ABSENT: prolonged expiratory phas, rales, rhonchi, tachypnea, wheezes Cardiovascular exam: PRESENT: RRR - With occasional irregular beats, +S1, +S2 GI/Abdominal exam: PRESENT: normal bowel sounds, soft. ABSENT: distended, guarding, tenderness Rectal exam: PRESENT: deferred Gentrourinary exam: ABSENT: indwelling catheter Extremities exam: ABSENT: pedal edema Musculoskeletal exam: PRESENT: ambulatory, normal inspection Results Laboratory Results: 02/06/20 06:40 02/06/20 06:40 02/01/20 02/01/20 02/02/20 15:13 15:13 04:58 Creatine Kinase 80 842 H Troponin I < 0.012 Impressions: Head CT 02/01/20 00:00 IMPRESSION: NO ACUTE INTRACRANIAL FINDINGS. EVIDENCE OF ACUTE STROKE: NO. Chest X-Ray 02/02/20 00:00 IMPRESSION: Cannot exclude limited pneumonia in the right mid lung. Assessment and Plan - Diagnosis (1) Drug overdose Qualifiers: Encounter type: subsequent encounter Injury intent: intentional self-harm Qualified Code(s): T50.902D - Poisoning by unspecified drugs, medicaments and biological substances, intentional self-harm, subsequent encounter Is this a current diagnosis for this admission?: Yes Plan: Awaiting placement inpatient psychiatric facility (2) Suicidal overdose Qualifiers: Encounter type: subsequent encounter Qualified Code(s): T50.902D - Poisoning by unspecified drugs, medicaments and biological substances, intentional self-harm, subsequent encounter Is this a current diagnosis for this admission?: Yes Plan: As above (3) Hypotension Qualifiers: Hypotension type: unspecified hypotension type Qualified Code(s): I95.9 - Hypotension, unspecified Is this a current diagnosis for this admission?: Yes Plan: Resolved (4) ROMELIA (acute kidney injury) Is this a current diagnosis for this admission?: Yes Plan: Creatinine is improved. It is just above the upper limit normal. GFR is greater than 60. Continue to monitor. (5) Acute metabolic encephalopathy Is this a current diagnosis for this admission?: Yes Plan: 02/02/2020-altered mental status/acute metabolic inflow for the most likely secondary to suicidal attempt with intake of chronic medications. Mental status is improving. Behavioral therapy consult was requested. 02/03/2020-acute metabolic encephalopathy is due to medication overdose is resolving. CT head is negative. 02/04/2020 Secondary to medication overdose. Slowly improving. 02/05/2020 Patient is likely back to his baseline. Acute encephalopathy resolved. 02/16/2020 Effects of acute overdose have waned. The acute encephalopathy has resolved. The patient's current state is likely his baseline. (6) Essential (primary) hypertension Is this a current diagnosis for this admission?: Yes Plan: Good blood pressure control on lisinopril and furosemide (7) Depression Qualifiers: Depression Type: major depressive disorder Major depression recurrence: recurrent Active/Remission status: currently active Major depression episode severity: severe Psychotic features: without psychotic features Qualified Code(s): F33.2 - Major depressive disorder, recurrent severe without psychotic features Is this a current diagnosis for this admission?: Yes Plan: Back on Lexapro and Zyprexa (8) Nausea Is this a current diagnosis for this admission?: Yes Plan: Yesterday the patient was complaining of nausea especially at meals. I switched his acid suppression regimen. He did eat his sandwich today. Sometimes his answers are not very clear. We will monitor his intake possibly adjust medications tomorrow. He may benefit from Carafate. - Plan Summary Summary: 02/05/2020 The patient is medically cleared for discharge. This will likely be transferred to an acute inpatient psychiatric facility. Will discuss with psychiatry. - Time Time Spent with patient: 15-24 minutes Medications reviewed and adjusted accordingly: Yes Anticipated discharge: Other
[2020-02-07] MEDS: OLANZAPINE 5 MG TABLET PO SCH (21:53)
[2020-02-08] MEDS: HEPARIN SOD (PORCINE) 5,000 UNIT/ML 1 ML VIAL SUBCUT SCH ×3 (05:29→21:40)
[2020-02-08] MEDS: LORAZEPAM 0.5 MG TABLET PO SCH ×3 (05:29→21:40)
[2020-02-08] MEDS: LISINOPRIL 5 MG TABLET PO SCH (09:18)
[2020-02-08] MEDS: FAMOTIDINE 20 MG TABLET PO SCH ×2 (09:18→21:40)
[2020-02-08] MEDS: FUROSEMIDE 20 MG TABLET PO SCH (09:18)
[2020-02-08] MEDS: ESCITALOPRAM OXALATE 10 MG TABLET PO SCH (09:18)
--- NOTE | 2020-02-08 13:49 | PDOC PROGRESS REPORT ---
Subjective Progress Note for:: 02/08/20 Subjective:: It appears the Lexapro and Zyprexa are kicking in. He does not appear restless. In fact I am going to decrease his scheduled Ativan over the next 24 hours and then stop it. The sitter states that once again he ate a good breakfast. His brother is at the bedside with questions. Reason For Visit: DRUG OVERDOSE Physical Exam Vital Signs: Temp Pulse Resp BP Pulse Ox 98.3 F 72 20 117/64 97 02/08/20 11:49 02/08/20 11:49 02/08/20 11:49 02/08/20 11:49 02/08/20 11:49 Intake & Output 02/07/20 02/08/20 02/09/20 06:59 06:59 06:59 Intake Total 357 1210 Output Total 1675 403 Balance -1318 807 Weight 78.5 kg 78.1 kg General appearance: PRESENT: no acute distress - Resting comfortably in bed, cooperative, well-developed Head exam: PRESENT: atraumatic, normocephalic Ear exam: PRESENT: normal external ear exam. ABSENT: bleeding, drainage Respiratory exam: PRESENT: clear to auscultation willian, symmetrical, unlabored. ABSENT: accessory muscle use, rales, rhonchi, tachypnea, wheezes Cardiovascular exam: PRESENT: RRR, +S1, +S2. ABSENT: diastolic murmur, irregular rhythm, systolic murmur GI/Abdominal exam: PRESENT: normal bowel sounds, soft. ABSENT: distended, firm, guarding, tenderness Rectal exam: PRESENT: deferred Gentrourinary exam: ABSENT: indwelling catheter Extremities exam: ABSENT: pedal edema Musculoskeletal exam: PRESENT: ambulatory, normal inspection. ABSENT: deformity, dislocation Neurological exam: PRESENT: alert, awake, oriented to person, oriented to place. ABSENT: altered Psychiatric exam: PRESENT: flat affect. ABSENT: agitated, anxious Results Laboratory Results: 02/06/20 06:40 02/06/20 06:40 02/01/20 02/01/20 02/02/20 15:13 15:13 04:58 Creatine Kinase 80 842 H Troponin I < 0.012 Impressions: Head CT 02/01/20 00:00 IMPRESSION: NO ACUTE INTRACRANIAL FINDINGS. EVIDENCE OF ACUTE STROKE: NO. Chest X-Ray 02/02/20 00:00 IMPRESSION: Cannot exclude limited pneumonia in the right mid lung. Assessment and Plan - Diagnosis (1) Drug overdose Qualifiers: Encounter type: subsequent encounter Injury intent: intentional self-harm Qualified Code(s): T50.902D - Poisoning by unspecified drugs, medicaments and biological substances, intentional self-harm, subsequent encounter Is this a current diagnosis for this admission?: Yes Plan: Trying to limit the number of medications due to his history of overdose. Currently back on Lexapro and Zyprexa. His brother had many concerns since the patient has experienced adverse effects either directly from the medication or polypharmacy. I explained that I wanted to slowly add back medication so that he does not end up on too many different prescriptions. (2) Suicidal overdose Qualifiers: Encounter type: subsequent encounter Qualified Code(s): T50.902D - Poisoning by unspecified drugs, medicaments and biological substances, intentional self-harm, subsequent encounter Is this a current diagnosis for this admission?: Yes Plan: As above. Psychiatry is working on placement now the patient is medically cleared. We have ordered COVID testing as he will likely need testing prior to being accepted at an inpatient psychiatric facility (3) ROMELIA (acute kidney injury) Is this a current diagnosis for this admission?: Yes Plan: GFR is greater than 60. At last check serum creatinine was 1.28. Acute kidney injury is resolved. Continue to encourage good hydration. (4) Acute metabolic encephalopathy Is this a current diagnosis for this admission?: Yes Plan: Patient is back at baseline (5) Essential (primary) hypertension Is this a current diagnosis for this admission?: Yes Plan: Now that his blood pressures are improved I have restarted his lisinopril and furosemide. (6) Depression Qualifiers: Depression Type: major depressive disorder Major depression recurrence: recurrent Active/Remission status: currently active Major depression episode severity: severe Psychotic features: without psychotic features Qualified Code(s): F33.2 - Major depressive disorder, recurrent severe without psychotic features Is this a current diagnosis for this admission?: Yes Plan: Lexapro and Zyprexa. Psychiatry is following trying to obtain a bed at an inpatient psychiatric facility. (7) Nausea Is this a current diagnosis for this admission?: Yes Plan: Resolved (8) Hypotension Qualifiers: Hypotension type: unspecified hypotension type Qualified Code(s): I95.9 - Hypotension, unspecified Is this a current diagnosis for this admission?: Yes Plan: Normal blood pressure. Hypotension resolved. - Plan Summary Summary: 02/05/2020 The patient is medically cleared for discharge. This will likely be transferred to an acute inpatient psychiatric facility. Will discuss with psychiatry. 02/08/2020 The patient's brother had several questions. He is very concerned about polypharmacy. I explained the particular reasons for restarting the medications I have restarted. I also stated that they try not to make too many changes within 2 short of a window to avoid the type of polypharmacy that I believe the patient's brother was referring to. In fact with his improvement I will quickly taper off the scheduled lorazepam dosing. The patient's brother does understand that we are waiting placement. - Time Time Spent with patient: 15-24 minutes Medications reviewed and adjusted accordingly: Yes Anticipated discharge: Other
[2020-02-08] MEDS: LORAZEPAM INJ 2 MG/1 ML VIAL IV PRN (15:51)
[2020-02-08] MEDS: OLANZAPINE 5 MG TABLET PO SCH (21:40)
[2020-02-09] MEDS: HEPARIN SOD (PORCINE) 5,000 UNIT/ML 1 ML VIAL SUBCUT SCH ×3 (05:11→23:13)
[2020-02-09] MEDS: LORAZEPAM 0.5 MG TABLET PO SCH (09:09)
[2020-02-09] MEDS: FUROSEMIDE 20 MG TABLET PO SCH (09:09)
[2020-02-09] MEDS: FAMOTIDINE 20 MG TABLET PO SCH ×2 (09:09→23:13)
[2020-02-09] MEDS: ESCITALOPRAM OXALATE 10 MG TABLET PO SCH (09:09)
[2020-02-09] MEDS: LISINOPRIL 5 MG TABLET PO SCH (09:09)
--- NOTE | 2020-02-09 11:20 | PDOC PROGRESS REPORT ---
Subjective Progress Note for:: 02/09/20 Subjective:: Patient is resting comfortably however his legs are restless. He states that he normally is on Ativan 3 mg every 8 hours and is requesting that this medicine be restarted. He states that he did not eat breakfast. He was not specific about whether it was because he did not like the meal or he was not hungry or if he did not feel well. Reason For Visit: DRUG OVERDOSE Physical Exam Vital Signs: Temp Pulse Resp BP Pulse Ox 97.3 F 78 16 141/69 H 99 02/09/20 08:03 02/09/20 08:03 02/09/20 08:03 02/09/20 08:03 02/09/20 08:03 Intake & Output 02/08/20 02/09/20 02/10/20 06:59 06:59 06:59 Intake Total 1210 1558 Output Total 403 Balance 807 1558 Weight 78.1 kg 79.3 kg General appearance: PRESENT: cooperative, mild distress, well-developed Head exam: PRESENT: atraumatic, normocephalic Ear exam: PRESENT: normal external ear exam. ABSENT: bleeding, drainage Mouth exam: PRESENT: moist, tongue midline Respiratory exam: PRESENT: clear to auscultation willian, symmetrical, unlabored. ABSENT: prolonged expiratory phas, rales, rhonchi, tachypnea, wheezes Cardiovascular exam: PRESENT: RRR, +S1, +S2. ABSENT: bradycardia, diastolic murmur, irregular rhythm, systolic murmur GI/Abdominal exam: PRESENT: normal bowel sounds, soft. ABSENT: distended, guarding, tenderness Rectal exam: PRESENT: deferred Extremities exam: ABSENT: pedal edema Musculoskeletal exam: PRESENT: ambulatory, normal inspection. ABSENT: deformity, dislocation Neurological exam: PRESENT: alert, awake, oriented to person, oriented to place, oriented to situation. ABSENT: altered Psychiatric exam: PRESENT: anxious, flat affect. ABSENT: agitated Focused psych exam: PRESENT: restlessness - Restless legs. ABSENT: delusional, paranoid Results Laboratory Results: 02/06/20 06:40 02/06/20 06:40 02/01/20 02/01/20 02/02/20 15:13 15:13 04:58 Creatine Kinase 80 842 H Troponin I < 0.012 Impressions: Head CT 02/01/20 00:00 IMPRESSION: NO ACUTE INTRACRANIAL FINDINGS. EVIDENCE OF ACUTE STROKE: NO. Chest X-Ray 02/02/20 00:00 IMPRESSION: Cannot exclude limited pneumonia in the right mid lung. Assessment and Plan - Diagnosis (1) Drug overdose Qualifiers: Encounter type: subsequent encounter Injury intent: intentional self-harm Qualified Code(s): T50.902D - Poisoning by unspecified drugs, medicaments and biological substances, intentional self-harm, subsequent encounter Is this a current diagnosis for this admission?: Yes Plan: The case was reviewed by psychiatry. Medication regimen suggested was Zyprexa 5 mg twice daily, BuSpar 5 mg twice daily, Cogentin 1 mg daily and clonazepam 0.5 mg every 8 hours if needed for anxiety or agitation. I have adjusted his orders to reflect this regimen. (2) Suicidal overdose Qualifiers: Encounter type: subsequent encounter Qualified Code(s): T50.902D - Poisoning by unspecified drugs, medicaments and biological substances, intentional self-harm, subsequent encounter Is this a current diagnosis for this admission?: Yes Plan: IVC was renewed today. Still looking for placement. (3) ROMELIA (acute kidney injury) Is this a current diagnosis for this admission?: Yes Plan: Serum creatinine was down to 1.28 several days ago. I will recheck labs tomorrow. Anticipate normal renal function. (4) Acute metabolic encephalopathy Is this a current diagnosis for this admission?: Yes Plan: The patient is back at baseline. Effects of the polypharmacy overdose of one half. (5) Essential (primary) hypertension Is this a current diagnosis for this admission?: Yes Plan: Stable on lisinopril 5 mg daily and furosemide 20 mg daily (6) Depression Qualifiers: Depression Type: major depressive disorder Major depression recurrence: recurrent Active/Remission status: currently active Major depression episode severity: severe Psychotic features: without psychotic features Qualified Co de(s): F33.2 - Major depressive disorder, recurrent severe without psychotic features Is this a current diagnosis for this admission?: Yes Plan: Severe depression. His IVC was renewed today. Awaiting placement in an inpatient psychiatric facility (7) Nausea Is this a current diagnosis for this admission?: Yes Plan: The patient states that he did not eat breakfast today. He is not clear why. He seems quite anxious this morning. He did in fact asked me about as needed lorazepam 3 mg every 8 hours that he has been on before. I checked with psychiatry and we are using the clonazepam as noted above. Breakfast tends to be his best meal but his appetite does vary. (8) Hypotension Qualifiers: Hypotension type: unspecified hypotension type Qualified Code(s): I95.9 - Hypotension, unspecified Is this a current diagnosis for this admission?: Yes Plan: Normal blood pressure. Hypotension resolved. - Plan Summary Summary: 02/05/2020 The patient is medically cleared for discharge. This will likely be transferred to an acute inpatient psychiatric facility. Will discuss with psychiatry. 02/08/2020 The patient's brother had several questions. He is very concerned about polypharmacy. I explained the particular reasons for restarting the medications I have restarted. I also stated that they try not to make too many changes within 2 short of a window to avoid the type of polypharmacy that I believe the patient's brother was referring to. In fact with his improvement I will quickly taper off the scheduled lorazepam dosing. The patient's brother does understand that we are waiting placement. - Time Time Spent with patient: 15-24 minutes Medications reviewed and adjusted accordingly: Yes Anticipated discharge: Other
[2020-02-09] MEDS ORDERED: BUSPIRONE HCL 10 MG TABLET PO PRN (15:01)
[2020-02-09] MEDS: BENZTROPINE MESYLATE 1 MG TABLET PO SCH (23:13)
[2020-02-09] MEDS: OLANZAPINE 5 MG TABLET PO SCH (23:14)
[2020-02-10 06:07] LABS: ABSOLUTE EOSINOPHILS # (AUTO) 0.1 10^3/uL (0.0-0.6); ABSOLUTE LYMPHOCYTES (AUTO) 2.1 10^3/uL (0.5-4.7); ABSOLUTE MONOCYTES (AUTO) 0.9 10^3/uL (0.1-1.4); ABSOLUTE NEUT (AUTO) 4.6 10^3/uL (1.7-8.2); BASOPHILS % (AUTO) 0.5 % (0-2); HEMATOCRIT 40.4 % (37.9-51.0); HEMOGLOBIN 13.9 g/dL (13.5-17.0); MEAN CORPUSCULAR HEMOGLOBIN 29.9 pg (27.0-33.4); MEAN CORPUSCULAR HGB CONC 34.3 g/dL (32.0-36.0); MEAN CORPUSCULAR VOLUME 87 fl (80-97); MONOCYTES % (AUTO) 11.3 % (3-13); PLATELET COUNT 231 10^3/uL (150-450); RED BLOOD COUNT 4.63 10^6/uL (4.35-5.55); RED CELL DISTRIBUTION WIDTH 14.4 % (11.5-14.0); SEGMENTED NEUTROPHILS % (AUTO) 60.2 % (42-78); TOTAL CELLS COUNTED % (AUTO) 100 %; WHITE BLOOD COUNT 7.7 10^3/uL (4.0-10.5)
[2020-02-10] MEDS: LORAZEPAM INJ 2 MG/1 ML VIAL IV PRN ×3 (06:12→22:26)
[2020-02-10] MEDS: HEPARIN SOD (PORCINE) 5,000 UNIT/ML 1 ML VIAL SUBCUT SCH ×3 (06:13→22:12)
[2020-02-10 06:32] LABS: ANION GAP 13 (5-19); BLOOD UREA NITROGEN 23 mg/dL (7-20); CALCIUM 10.3 mg/dL (8.4-10.2); CARBON DIOXIDE 25 mmol/L (22-30); CHLORIDE 101 mmol/L (98-107); GLUCOSE 106 mg/dL (75-110); POTASSIUM 4.2 mmol/L (3.6-5.0)
[2020-02-10] MEDS: FUROSEMIDE 20 MG TABLET PO SCH (09:19)
[2020-02-10] MEDS: OLANZAPINE 5 MG TABLET PO SCH ×2 (09:20→22:14)
[2020-02-10] MEDS: LISINOPRIL 5 MG TABLET PO SCH (09:20)
[2020-02-10] MEDS: FAMOTIDINE 20 MG TABLET PO SCH ×2 (09:20→22:12)
--- NOTE | 2020-02-10 10:24 | PDOC PROGRESS REPORT ---
Subjective Progress Note for:: 02/10/20 Subjective:: 02/03/2020-no acute events last 24 hours. Afebrile. Blood pressures are improved to 126/73. Labs are stable. Speech consult is pending. Patient is still n.p.o. More alert more awake compared to yesterday. 02/10/2020 patient is resting comfortably. He is still under IVC commitment waiting for place at inpatient psych facility. Patient is medically cleared to go to inpatient psych facility. Reason For Visit: DRUG OVERDOSE Physical Exam Vital Signs: Temp Pulse Resp BP Pulse Ox 98.1 F 81 15 142/80 H 96 02/10/20 08:03 02/10/20 08:03 02/10/20 08:03 02/10/20 08:03 02/10/20 08:03 Intake & Output 02/09/20 02/10/20 02/11/20 06:59 06:59 06:59 Intake Total 1558 597 Balance 1558 597 Weight 79.3 kg 78.6 kg General appearance: PRESENT: no acute distress, cooperative, well-developed Head exam: PRESENT: atraumatic Eye exam: PRESENT: PERRLA Ear exam: PRESENT: normal external ear exam Mouth exam: PRESENT: neck supple Teeth exam: PRESENT: poor dentation Neck exam: ABSENT: carotid bruit, JVD, lymphadenopathy, thyromegaly Respiratory exam: PRESENT: decreased breath sounds Cardiovascular exam: PRESENT: RRR. ABSENT: diastolic murmur, rubs, systolic murmur GI/Abdominal exam: PRESENT: normal bowel sounds, soft. ABSENT: distended, guarding, mass, organolmegaly, rebound, tenderness Rectal exam: PRESENT: deferred Extremities exam: PRESENT: full ROM. ABSENT: calf tenderness, clubbing, pedal edema Neurological exam: PRESENT: alert, awake, oriented to person, oriented to place, oriented to time, oriented to situation, CN II-XII grossly intact. ABSENT: motor sensory deficit Psychiatric exam: PRESENT: appropriate affect, normal mood. ABSENT: homicidal ideation, suicidal ideation Results Laboratory Results: 02/10/20 05:49 02/10/20 05:49 02/10/20 02/10/20 05:49 05:49 WBC 7.7 RBC 4.63 Hgb 13.9 Hct 40.4 MCV 87 MCH 29.9 MCHC 34.3 RDW 14.4 H Plt Count 231 Seg Neutrophils % 60.2 Sodium 139.2 Potassium 4.2 Chloride 101 Carbon Dioxide 25 Anion Gap 13 BUN 23 H Creatinine 1.26 H Est GFR ( Amer) > 60 Glucose 106 Calcium 10.3 H Magnesium 2.3 02/01/20 02/01/20 02/02/20 15:13 15:13 04:58 Creatine Kinase 80 842 H Troponin I < 0.012 Impressions: Head CT 02/01/20 00:00 IMPRESSION: NO ACUTE INTRACRANIAL FINDINGS. EVIDENCE OF ACUTE STROKE: NO. Chest X-Ray 02/02/20 00:00 IMPRESSION: Cannot exclude limited pneumonia in the right mid lung. Assessment and Plan - Diagnosis (1) Drug overdose Qualifiers: Encounter type: subsequent encounter Injury intent: intentional self-harm Qualified Code(s): T50.902D - Poisoning by unspecified drugs, medicaments and biological substances, intentional self-harm, subsequent encounter Is this a current diagnosis for this admission?: Yes Plan: The case was reviewed by psychiatry. Medication regimen suggested was Zyprexa 5 mg twice daily, BuSpar 5 mg twice daily, Cogentin 1 mg daily and clonazepam 0.5 mg every 8 hours if needed for anxiety or agitation. I have adjusted his orders to reflect this regimen. 02/10/2020-patient was comfortably in the bed communicating well. No signs of anxiety depression. Medication use as per psych recommendations. Waiting for inpatient psych facility placement. Patient is still under IVC commitment. (2) Suicidal overdose Qualifiers: Encounter type: subsequent encounter Qualified Code(s): T50.902D - Poisoning by unspecified drugs, medicaments and biological substances, intentional self-harm, subsequent encounter Is this a current diagnosis for this admission?: Yes Plan: IVC was renewed today. Still looking for placement. 02/10/2020-patient is medically cleared to inpatient psych facility. (3) Hypotension Qualifiers: Hypotension type: unspecified hypotension type Qualified Code(s): I95.9 - Hypotension, unspecified Is this a current diagnosis for this admission?: Yes Plan: Normal blood pressure. Hypotension resolved. 02/10/2020-blood pressure today is 119/60. Hypotension resolved. (4) ROMELIA (acute kidney injury) Is this a current diagnosis for this admission?: Yes Plan: Serum creatinine was down to 1.28 several days ago. I will recheck labs tomorrow. Anticipate normal renal function. 02/10/2020-serum creatinine today's 1.26 stable. (5) Acute metabolic encephalopathy Is this a current diagnosis for this admission?: Yes Plan: The patient is back at baseline. Effects of the polypharmacy overdose of one half. - Plan Summary Summary: 02/05/2020 The patient is medically cleared for discharge. This will likely be transferred to an acute inpatient psychiatric facility. Will discuss with psychiatry. 02/08/2020 The patient's brother had several questions. He is very concerned about polypharmacy. I explained the particular reasons for restarting the medications I have restarted. I also stated that they try not to make too many changes within 2 short of a window to avoid the type of polypharmacy that I believe the patient's brother was referring to. In fact with his improvement I will quickly taper off the scheduled lorazepam dosing. The patient's brother does understand that we are waiting placement.
--- NOTE | 2020-02-10 17:15 | PSYCHOLOGICAL NOTE ---
Psych Note - Psych Note Date seen by psych provider: 02/09/20 Psych Note: Reason for Consult: Intentional overdose Check in with patient: Patient reports he is not happy he was unsuccessful in killing himself. He reports that he wants to and does not understand why we will not let him. presents dysphoric with flat affect Medication recommendations per [facility]'s contracted psychiatrist Dr. Dacia GONG are as follows: Zyprexa 5 mg twice daily BuSpar 5 mg twice daily Cogentin 1 mg daily clonazepam 0.5 mg 3 times daily PRN Impression\plan: Patient is recommended to continue under IVC. Patient IVC paperwork has been renewed, faxed to flagger and placed in patient's chart. Patient continues to present dysphoric with flat affect. He and continues to endorse suicidal ideation, reporting that he is not been pleased that he was unsuccessful his attempt to kill himself. Placement efforts are ongoing. Dr. Barrett has been still consulted on the care management of this patient; tending physicians in agreement with recommendations and disposition.
[2020-02-10] MEDS: BENZTROPINE MESYLATE 1 MG TABLET PO SCH (22:12)
[2020-02-11] MEDS: LORAZEPAM INJ 2 MG/1 ML VIAL IV PRN ×2 (04:30→07:58)
[2020-02-11] MEDS: HEPARIN SOD (PORCINE) 5,000 UNIT/ML 1 ML VIAL SUBCUT SCH ×3 (05:23→21:23)
[2020-02-11] MEDS: OLANZAPINE 5 MG TABLET PO SCH ×2 (09:26→21:23)
[2020-02-11] MEDS: LISINOPRIL 5 MG TABLET PO SCH (09:26)
[2020-02-11] MEDS: FAMOTIDINE 20 MG TABLET PO SCH ×2 (09:27→21:23)
[2020-02-11] MEDS: MEGESTROL ACETATE SUSP 400 MG/10 ML UDCUP PO SCH (09:27)
--- NOTE | 2020-02-11 10:31 | PDOC PROGRESS REPORT ---
Subjective Progress Note for:: 02/11/20 Subjective:: 02/03/2020-no acute events last 24 hours. Afebrile. Blood pressures are improved to 126/73. Labs are stable. Speech consult is pending. Patient is still n.p.o. More alert more awake compared to yesterday. 02/10/2020 patient is resting comfortably. He is still under IVC commitment waiting for place at inpatient psych facility. Patient is medically cleared to go to inpatient psych facility. 02/11/2020-patient is waiting for placement at inpatient psych facility. He is under IVC commitment. No acute events in the last 24 hours. Reason For Visit: DRUG OVERDOSE Physical Exam Vital Signs: Temp Pulse Resp BP Pulse Ox 98.0 F 97 17 102/59 L 94 02/11/20 08:12 02/11/20 08:12 02/11/20 08:12 02/11/20 08:12 02/11/20 08:12 Intake & Output 02/10/20 02/11/20 02/12/20 06:59 06:59 06:59 Intake Total 597 357 Balance 597 357 Weight 78.6 kg 77.9 kg General appearance: PRESENT: no acute distress, cooperative, well-developed Head exam: PRESENT: atraumatic Eye exam: PRESENT: PERRLA Mouth exam: PRESENT: moist, tongue midline Teeth exam: PRESENT: poor dentation Neck exam: ABSENT: carotid bruit, JVD, lymphadenopathy, thyromegaly Respiratory exam: PRESENT: clear to auscultation willian. ABSENT: rales, rhonchi, wheezes Cardiovascular exam: PRESENT: RRR. ABSENT: diastolic murmur, rubs, systolic murmur GI/Abdominal exam: PRESENT: normal bowel sounds, soft. ABSENT: distended, guarding, mass, organolmegaly, rebound, tenderness Rectal exam: PRESENT: deferred Extremities exam: PRESENT: full ROM. ABSENT: calf tenderness, clubbing, pedal edema Neurological exam: PRESENT: alert, awake, oriented to person, oriented to place, oriented to time, oriented to situation, CN II-XII grossly intact. ABSENT: motor sensory deficit Psychiatric exam: PRESENT: appropriate affect, normal mood. ABSENT: homicidal ideation, suicidal ideation Results Laboratory Results: 02/10/20 05:49 02/10/20 05:49 07/0502/01/20 02/02/20 15:13 15:13 04:58 Creatine Kinase 80 842 H Troponin I < 0.012 Impressions: Head CT 02/01/20 00:00 IMPRESSION: NO ACUTE INTRACRANIAL FINDINGS. EVIDENCE OF ACUTE STROKE: NO. Chest X-Ray 02/02/20 00:00 IMPRESSION: Cannot exclude limited pneumonia in the right mid lung. Assessment and Plan - Diagnosis (1) Drug overdose Qualifiers: Encounter type: subsequent encounter Injury intent: intentional self-harm Qualified Code(s): T50.902D - Poisoning by unspecified drugs, medicaments and biological substances, intentional self-harm, subsequent encounter Is this a current diagnosis for this admission?: Yes Plan: The case was reviewed by psychiatry. Medication regimen suggested was Zyprexa 5 mg twice daily, BuSpar 5 mg twice daily, Cogentin 1 mg daily and clonazepam 0.5 mg every 8 hours if needed for anxiety or agitation. I have adjusted his orders to reflect this regimen. 02/10/2020-patient was comfortably in the bed communicating well. No signs of anxiety depression. Medication use as per psych recommendations. Waiting for inpatient psych facility placement. Patient is still under IVC commitment. 02/11/2020-patient admitted with drug overdose and suicidal attempt. Waiting for placement at inpatient psych facility. He still expressing desire to commit suicide. Patient is under IVC. (2) Suicidal overdose Qualifiers: Encounter type: subsequent encounter Qualified Code(s): T50.902D - Poison ing by unspecified drugs, medicaments and biological substances, intentional self-harm, subsequent encounter Is this a current diagnosis for this admission?: Yes Plan: IVC was renewed today. Still looking for placement. 02/10/2020-patient is medically cleared to inpatient psych facility. (3) Hypotension Qualifiers: Hypotension type: unspecified hypotension type Qualified Code(s): I95.9 - Hypotension, unspecified Is this a current diagnosis for this admission?: Yes Plan: Normal blood pressure. Hypotension resolved. 02/10/2020-blood pressure today is 119/60. Hypotension resolved. (4) ROMELIA (acute kidney injury) Is this a current diagnosis for this admission?: Yes Plan: Serum creatinine was down to 1.28 several days ago. I will recheck labs tomorrow. Anticipate normal renal function. 02/10/2020-serum creatinine today's 1.26 stable. (5) Acute metabolic encephalopathy Is this a current diagnosis for this admission?: Yes Plan: The patient is back at baseline. Effects of the polypharmacy overdose of one half. - Plan Summary Summary: 02/05/2020 The patient is medically cleared for discharge. This will likely be transferred to an acute inpatient psychiatric facility. Will discuss with psychiatry. 02/08/2020 The patient's brother had several questions. He is very concerned about polypharmacy. I explained the particular reasons for restarting the medications I have restarted. I also stated that they try not to make too many changes within 2 short of a window to avoid the type of polypharmacy that I believe the patient's brother was referring to. In fact with his improvement I will quickly taper off the scheduled lorazepam dosing. The patient's brother does understand that we are waiting placement.
[2020-02-11] MEDS: LORAZEPAM 0.5 MG TABLET PO SCH ×2 (12:36→17:12)
[2020-02-11] MEDS: BENZTROPINE MESYLATE 1 MG TABLET PO SCH (21:23)
[2020-02-12] MEDS: LORAZEPAM 0.5 MG TABLET PO SCH ×5 (00:06→23:44)
[2020-02-12] MEDS: HEPARIN SOD (PORCINE) 5,000 UNIT/ML 1 ML VIAL SUBCUT SCH ×3 (06:49→21:08)
[2020-02-12] MEDS: LISINOPRIL 5 MG TABLET PO SCH (10:08)
[2020-02-12] MEDS: MEGESTROL ACETATE SUSP 400 MG/10 ML UDCUP PO SCH (10:08)
[2020-02-12] MEDS: OLANZAPINE 5 MG TABLET PO SCH ×2 (10:08→21:08)
[2020-02-12] MEDS: FAMOTIDINE 20 MG TABLET PO SCH ×2 (10:08→21:08)
--- NOTE | 2020-02-12 11:28 | PDOC PROGRESS REPORT ---
Subjective Progress Note for:: 02/12/20 Subjective:: 02/03/2020-no acute events last 24 hours. Afebrile. Blood pressures are improved to 126/73. Labs are stable. Speech consult is pending. Patient is still n.p.o. More alert more awake compared to yesterday. 02/10/2020 patient is resting comfortably. He is still under IVC commitment waiting for place at inpatient psych facility. Patient is medically cleared to go to inpatient psych facility. 02/11/2020-patient is waiting for placement at inpatient psych facility. He is under IVC commitment. No acute events in the last 24 hours. 02/12/2020-no acute events, waiting for placement at inpatient psych facility. Reason For Visit: DRUG OVERDOSE Physical Exam Vital Signs: Temp Pulse Resp BP Pulse Ox 98.1 F 71 20 129/69 H 94 02/12/20 07:22 02/12/20 07:22 02/12/20 07:22 02/12/20 07:22 02/12/20 07:22 Intake & Output 02/11/20 02/12/20 02/13/20 06:59 06:59 06:59 Intake Total 357 960 Balance 357 960 Weight 77.9 kg 77.5 kg General appearance: PRESENT: no acute distress, well-developed Head exam: PRESENT: atraumatic Eye exam: PRESENT: PERRLA Mouth exam: PRESENT: moist, tongue midline Teeth exam: PRESENT: poor dentation Neck exam: ABSENT: carotid bruit, JVD, lymphadenopathy, thyromegaly Respiratory exam: PRESENT: decreased breath sounds Cardiovascular exam: PRESENT: RRR. ABSENT: diastolic murmur, rubs, systolic murmur GI/Abdominal exam: PRESENT: normal bowel sounds, soft. ABSENT: distended, g uarding, mass, organolmegaly, rebound, tenderness Rectal exam: PRESENT: deferred Extremities exam: PRESENT: full ROM. ABSENT: calf tenderness, clubbing, pedal edema Neurological exam: PRESENT: alert, awake, oriented to person, oriented to place, oriented to time, oriented to situation, CN II-XII grossly intact. ABSENT: mo tor sensory deficit Psychiatric exam: PRESENT: appropriate affect, normal mood. ABSENT: homicidal ideation, suicidal ideation Results Laboratory Results: 02/10/20 05:49 02/10/20 05:49 02/01/20 02/01/20 02/02/20 15:13 15:13 04:58 Creatine Kinase 80 842 H Troponin I < 0.012 Impressions: Head CT 02/01/20 00:00 IMPRESSION: NO ACUTE INTRACRANIAL FINDINGS. EVIDENCE OF ACUTE STROKE: NO. Chest X-Ray 02/02/20 00:00 IMPRESSION: Cannot exclude limited pneumonia in the right mid lung. Assessment and Plan - Diagnosis (1) Drug overdose Qualifiers: Encounter type: subsequent encounter Injury intent: intentional self-harm Qualified Code(s): T50.902D - Poisoning by unspecified drugs, medicaments and biological substances, intentional self-harm, subsequent encounter Is this a current diagnosis for this admission?: Yes Plan: The case was reviewed by psychiatry. Medication regimen suggested was Zyprexa 5 mg twice daily, BuSpar 5 mg twice daily, Cogentin 1 mg daily and clonazepam 0.5 mg every 8 hours if needed for anxiety or agitation. I have adjusted his orders to reflect this regimen. 02/10/2020-patient was comfortably in the bed communicating well. No signs of anxiety depression. Medication use as per psych recommendations. Waiting for inpatient psych facility placement. Patient is still under IVC commitment. 02/11/2020-patient admitted with drug overdose and suicidal attempt. Waiting for placement at inpatient psych facility. He still expressing desire to commit suicide. Patient is under IVC. 02/12/2020-patient is under IVC commitment, awaiting for bed and inpatient psych facility. (2) Suicidal overdose Qualifiers: Encounter type: subsequent encounter Qualified Code(s): T50.902D - Poisoning by unspecified drugs, medicaments and biological substances, intentional self-harm, subsequent encounter Is this a current diagnosis for this admission?: Yes Plan: IVC was renewed today. Still looking for placement. 02/10/2020-patient is medically cleared to inpatient psych facility. (3) Hypotension Qualifiers: Hypotension type: unspecified hypotension type Qualified Code(s): I95.9 - Hypotension, unspecified Is this a current diagnosis for this admission?: Yes Plan: Normal blood pressure. Hypotension resolved. 02/10/2020-blood pressure today is 119/60. Hypotension resolved. 02/12/2020-patient blood pressure today is 105/60. Low normal. Patient is asymptomatic. Under IVC commitment waiting for placement in inpatient psych facility. (4) ROMELIA (acute kidney injury) Is this a current diagnosis for this admission?: Yes Plan: Serum creatinine was down to 1.28 several days ago. I will recheck labs tomorrow. Anticipate normal renal function. 02/10/2020-serum creatinine today's 1.26 stable. (5) Acute metabolic encephalopathy Is this a current diagnosis for this admission?: Yes Plan: The patient is back at baseline. Effects of the polypharmacy overdose of one half. - Plan Summary Summary: 02/05/2020 The patient is medically cleared for discharge. This will likely be transferred to an acute inpatient psychiatric facility. Will discuss with psychiatry. 02/08/2020 The patient's brother had several questions. He is very concerned about polypharmacy. I explained the particular reasons for restarting the medications I have restarted. I also stated that they try not to make too many changes within 2 short of a window to avoid the type of polypharmacy that I believe the patient's brother was referring to. In fact with his improvement I will quickly taper off the scheduled lorazepam dosing. The patient's brother does understand that we are waiting placement.
--- NOTE | 2020-02-12 11:41 | PSYCHOLOGICAL NOTE ---
Psych Note - Psych Note Date seen by psych provider: 02/11/20 Psych Note: check in conducted with patient: patient continues to present with flat affect and dysphoric mood. He continues to make suicidal comments to staff. updated Patient recommendations per [facility]'s contracted psychiatrist Dr. Dacia GONG are as follows discontinue Zyprexa, Cogentin and Ativan please schedule BuSpar 5 mg twice daily please add Celexa 20 mg daily please add clonazepam 0.5 mg 3 times daily PRN Case Management: Scarlett Mcgee Denied acceptance Patient's paperwork has been re-faxed for placement consideration: [facility] Lerner Impression\plan: Patient is recommended for continue IVC. Patient has a mental health history and was seen in the ED for suicidal ideation in August 2016. He was sent under IVC to [place] during that visit. Patient is high risk do to his history and age. Dr. Barrett was consulted on the care and management of this patient; attending physician is in agreement with recommendations and disposition.
[2020-02-12] MEDS: LORAZEPAM INJ 2 MG/1 ML VIAL IV PRN (15:38)
[2020-02-12] MEDS: BENZTROPINE MESYLATE 1 MG TABLET PO SCH (21:08)
[2020-02-13] MEDS: HEPARIN SOD (PORCINE) 5,000 UNIT/ML 1 ML VIAL SUBCUT SCH ×3 (05:50→21:20)
[2020-02-13] MEDS: LORAZEPAM 0.5 MG TABLET PO SCH ×4 (05:51→23:27)
--- NOTE | 2020-02-13 09:30 | PDOC PROGRESS REPORT ---
Subjective Progress Note for:: 02/13/20 Subjective:: 02/03/2020-no acute events last 24 hours. Afebrile. Blood pressures are improved to 126/73. Labs are stable. Speech consult is pending. Patient is still n.p.o. More alert more awake compared to yesterday. 02/10/2020 patient is resting comfortably. He is still under IVC commitment waiting for place at inpatient psych facility. Patient is medically cleared to go to inpatient psych facility. 02/11/2020-patient is waiting for placement at inpatient psych facility. He is under IVC commitment. No acute events in the last 24 hours. 02/12/2020-no acute events, waiting for placement at inpatient psych facility. 02/13/20-no acute events in the last 24 hours. Afebrile. Doing for placement at inpatient psych facility. Psych medication recommendations are implemented. Reason For Visit: DRUG OVERDOSE Physical Exam Vital Signs: Temp Pulse Resp BP Pulse Ox 98.1 F 96 16 129/78 H 97 02/13/20 07:32 02/13/20 07:32 02/13/20 07:32 02/13/20 07:32 02/13/20 07:32 Intake & Output 02/12/20 02/13/20 02/14/20 06:59 06:59 06:59 Intake Total 960 1060 Balance 960 1060 Weight 77.5 kg 77.2 kg General appearance: PRESENT: no acute distress, cooperative, well-developed Head exam: PRESENT: atraumatic Eye exam: PRESENT: PERRLA Mouth exam: PRESENT: moist, tongue midline Teeth exam: PRESENT: poor dentation Respiratory exam: PRESENT: clear to auscultation willian. ABSENT: rales, rhonchi, w heezes Cardiovascular exam: PRESENT: RRR. ABSENT: diastolic murmur, rubs, systolic murmur GI/Abdominal exam: PRESENT: normal bowel sounds, soft. ABSENT: distended, guarding, mass, organolmegaly, rebound, tenderness Rectal exam: PRESENT: deferred Extremities exam: PRESENT: full ROM. ABSENT: calf tenderness, clubbing, pedal edema Neurological exam: PRESENT: alert, awake, oriented to person, oriented to place, oriented to time, oriented to situation, CN II-XII grossly intact. ABSENT: motor sensory deficit Psychiatric exam: PRESENT: appropriate affect, normal mood. ABSENT: homicidal ideation, suicidal ideation Results Laboratory Results: 02/10/20 05:49 02/10/20 05:49 02/01/20 02/01/20 02/02/20 15:13 15:13 04:58 Creatine Kinase 80 842 H Troponin I < 0.012 Impressions: Head CT 02/01/20 00:00 IMPRESSION: NO ACUTE INTRACRANIAL FINDINGS. EVIDENCE OF ACUTE STROKE: NO. Chest X-Ray 02/02/20 00:00 IMPRESSION: Cannot exclude limited pneumonia in the right mid lung. Assessment and Plan - Diagnosis (1) Drug overdose Qualifiers: Encounter type: subsequent encounter Injury intent: intentional self-harm Qualified Code(s): T50.902D - Poisoning by unspecified drugs, medicaments and biological substances, intentional self-harm, subsequent encounter Is this a current diagnosis for this admission?: Yes Plan: The case was reviewed by psychiatry. Medication regimen suggested was Zyprexa 5 mg twice daily, BuSpar 5 mg twice daily, Cogentin 1 mg daily and clonazepam 0.5 mg every 8 hours if needed for anxiety or agitation. I have adjusted his orders to reflect this regimen. 02/10/2020-patient was comfortably in the bed communicating well. No signs of anxiety depression. Medication use as per psych recommendations. Waiting for inpatient psych facility placement. Patient is still under IVC commitment. 02/11/2020-patient admitted with drug overdose and suicidal attempt. Waiting for placement at inpatient psych facility. He still expressing desire to commit suicide. Patient is under IVC. 02/12/2020-patient is under IVC commitment, awaiting for bed and inpatient psych facility. 02/13/2020-patient is under IVC commitment presently on BuSpar 5 mg p.o. twice daily, Celexa 20 mg daily, clonazepam 0.5 mg 3 times daily. For placement at inpatient psych facility. (2) Suicidal overdose Qualifiers: Encounter type: subsequent encounter Qualified Code(s): T50.902D - Poisoning by unspecified drugs, medicaments and biological substances, intentional self-harm, subsequent encounter Is this a current diagnosis for this admission?: Yes Plan: IVC was renewed today. Still looking for placement. 02/10/2020-patient is medically cleared to inpatient psych facility. (3) Hypotension Qualifiers: Hypotension type: unspecified hypotension type Qualified Code(s): I95.9 - Hypotension, unspecified Is this a current diagnosis for this admission?: Yes Plan: Normal blood pressure. Hypotension resolved. 02/10/2020-blood pressure today is 119/60. Hypotension resolved. 02/12/2020-patient blood pressure today is 105/60. Low normal. Patient is asymptomatic. Under IVC commitment waiting for placement in inpatient psych facility. (4) ROMELIA (acute kidney injury) Is this a current diagnosis for this admission?: Yes Plan: Serum creatinine was down to 1.28 several days ago. I will recheck labs tomorrow. Anticipate normal renal function. 02/10/2020-serum creatinine today's 1.26 stable. (5) Acute metabolic encephalopathy Is this a current diagnosis for this admission?: Yes Plan: The patient is back at baseline. Effects of the polypharmacy overdose - Plan Summary Summary: 02/05/2020 The patient is medically cleared for discharge. This will likely be transferred to an acute inpatient psychiatric facility. Will discuss with psychiatry. 02/08/2020 The patient's brother had several questions. He is very concerned about polypharmacy. I explained the particular reasons for restarting the medications I have restarted. I also stated that they try not to make too many changes within 2 short of a window to avoid the type of polypharmacy that I believe the patient's brother was referring to. In fact with his improvement I will quickly taper off the scheduled lorazepam dosing. The patient's brother does understand that we are waiting placement.
[2020-02-13] MEDS: FAMOTIDINE 20 MG TABLET PO SCH ×2 (09:44→21:19)
[2020-02-13] MEDS: LISINOPRIL 5 MG TABLET PO SCH (09:44)
[2020-02-13] MEDS: BUSPIRONE HCL 10 MG TABLET PO SCH ×2 (09:44→21:20)
[2020-02-13] MEDS: CITALOPRAM HYDROBROMIDE 20 MG TABLET PO SCH (09:45)
[2020-02-13] MEDS: MEGESTROL ACETATE SUSP 400 MG/10 ML UDCUP PO SCH (09:46)
[2020-02-13] MEDS: LORAZEPAM INJ 2 MG/1 ML VIAL IV PRN (09:51)
[2020-02-13] MEDS: CLONAZEPAM 1 MG TABLET PO SCH ×2 (14:12→21:19)
[2020-02-13 20:45] LABS: HEMATOCRIT 36.1 % (37.9-51.0); HEMOGLOBIN 12.3 g/dL (13.5-17.0); MEAN CORPUSCULAR HEMOGLOBIN 29.8 pg (27.0-33.4); MEAN CORPUSCULAR HGB CONC 34.1 g/dL (32.0-36.0); MEAN CORPUSCULAR VOLUME 87 fl (80-97); PLATELET COUNT 211 10^3/uL (150-450); RED BLOOD COUNT 4.13 10^6/uL (4.35-5.55); RED CELL DISTRIBUTION WIDTH 14.4 % (11.5-14.0); WHITE BLOOD COUNT 6.6 10^3/uL (4.0-10.5)
[2020-02-13 21:03] LABS: ALBUMIN 4.5 g/dL (3.5-5.0); ALKALINE PHOSPHATASE 41 U/L (38-126); ANION GAP 10 (5-19); ASPARTATE AMINO TRANSFERASE 33 U/L (17-59); BILIRUBIN,TOTAL 0.4 mg/dL (0.2-1.3); BLOOD UREA NITROGEN 39 mg/dL (7-20); CALCIUM 9.9 mg/dL (8.4-10.2); CARBON DIOXIDE 23 mmol/L (22-30); CHLORIDE 106 mmol/L (98-107); GLUCOSE 105 mg/dL (75-110); POTASSIUM 4.6 mmol/L (3.6-5.0); TOTAL PROTEIN 7.4 g/dL (6.3-8.2)
--- NOTE | 2020-02-13 22:56 | RADIOLOGY REPORT (SQ) ---
CLINICAL INDICATION: FOLLOW UP PNEUMONIA. TECHNIQUE: A single portable AP view was obtained of the chest at 2222 hours. Additional repeat image COMPARISON: February 02, 2020. FINDINGS: The cardiomediastinal silhouette is normal. The lungs demonstrate chronic change. Improved aeration when compared to prior.. No evidence of effusion or pneumothorax. The visualized bones are unremarkable. IMPRESSION: Improved aeration. Residual presumed chronic change.
[2020-02-14] MEDS: CLONAZEPAM 1 MG TABLET PO SCH (06:10)
[2020-02-14] MEDS: HEPARIN SOD (PORCINE) 5,000 UNIT/ML 1 ML VIAL SUBCUT SCH ×3 (06:10→21:54)
[2020-02-14] MEDS: LORAZEPAM 0.5 MG TABLET PO SCH ×2 (06:10→11:55)
[2020-02-14 06:31] LABS: APPEARANCE,URINE CLEAR; BILIRUBIN,URINE NEGATIVE (NEGATIVE); COLOR,URINE YELLOW; GLUCOSE, URINE NEGATIVE (NEGATIVE); KETONES,URINE TRACE mg/dL (NEGATIVE); LEUKOCYTE ESTERASE,URINE NEGATIVE (NEGATIVE); NITRITE,URINE NEGATIVE (NEGATIVE); PROTEIN,URINE NEGATIVE (NEGATIVE); URINE SPECIFIC GRAVITY 1.021; UROBILINOGEN,URINE NEGATIVE mg/dL (<2.0)
--- NOTE | 2020-02-14 09:23 | PDOC PROGRESS REPORT ---
Subjective Progress Note for:: 02/14/20 Subjective:: 02/03/2020-no acute events last 24 hours. Afebrile. Blood pressures are improved to 126/73. Labs are stable. Speech consult is pending. Patient is still n.p.o. More alert more awake compared to yesterday. 02/10/2020 patient is resting comfortably. He is still under IVC commitment waiting for place at inpatient psych facility. Patient is medically cleared to go to inpatient psych facility. 02/11/2020-patient is waiting for placement at inpatient psych facility. He is under IVC commitment. No acute events in the last 24 hours. 02/12/2020-no acute events, waiting for placement at inpatient psych facility. 02/13/20-no acute events in the last 24 hours. Afebrile. Doing for placement at inpatient psych facility. Psych medication recommendations are implemented. 02/14/20-no acute events in the last 24 hours. Lab work was done last night they are basically within normal limits. Waiting for placement. Reason For Visit: DRUG OVERDOSE Physical Exam Vital Signs: Temp Pulse Resp BP Pulse Ox 97.8 F 71 18 106/65 96 02/14/20 07:28 02/14/20 07:28 02/14/20 07:28 02/14/20 07:28 02/14/20 07:28 Intake & Output 02/13/20 02/14/20 02/15/20 06:59 06:59 06:59 Intake Total 1060 830 Output Total 400 Balance 1060 430 Weight 77.2 kg 77.5 kg General appearance: PRESENT: no acute distress Head exam: PRESENT: atraumatic Eye exam: PRESENT: conjunctiva pale, PERRLA Ear exam: PRESENT: normal external ear exam Mouth exam: PRESENT: neck supple Teeth exam: PRESENT: poor dentation Neck exam: ABSENT: carotid bruit, JVD, lymphadenopathy, thyromegaly Respiratory exam: PRESENT: decreased breath sounds Cardiovascular exam: PRESENT: RRR. ABSENT: diastolic murmur, rubs, systolic murmur GI/Abdominal exam: PRESENT: normal bowel sounds, soft. ABSENT: distended, guarding, mass, organolmegaly, rebound, tenderness Rectal exam: PRESENT: deferred Extremities exam: PRESENT: full ROM. ABSENT: calf tenderness, clubbing, pedal edema Neurological exam: PRESENT: alert, awake, oriented to person, oriented to place, oriented to time, oriented to situation, CN II-XII grossly intact. ABSENT: motor sensory deficit Psychiatric exam: PRESENT: appropriate affect, normal mood. ABSENT: homicidal ideation, suicidal ideation Results Laboratory Results: 02/13/20 20:38 02/13/20 20:38 02/13/20 02/13/20 02/14/20 20:38 20:38 06:20 WBC 6.6 RBC 4.13 L Hgb 12.3 L Hct 36.1 L MCV 87 MCH 29.8 MCHC 34.1 RDW 14.4 H Plt Count 211 Sodium 138.5 Potassium 4.6 Chloride 106 Carbon Dioxide 23 Anion Gap 10 BUN 39 H Creatinine 1.57 H Est GFR ( Amer) 53 L Glucose 105 Calcium 9.9 Total Bilirubin 0.4 AST 33 Alkaline Phosphatase 41 Total Protein 7.4 Albumin 4.5 Urine Color YELLOW Urine Appearance CLEAR Urine pH 6.0 Ur Specific Powers 1.021 Urine Protein NEGATIVE Urine Glucose (UA) NEGATIVE Urine Ketones TRACE H Urine Blood NEGATIVE Urine Nitrite NEGATIVE Ur Leukocyte Esterase NEGATIVE Urine WBC (Auto) 2 02/01/20 02/01/20 02/02/20 15:13 15:13 04:58 Creatine Kinase 80 842 H Troponin I < 0.012 Impressions: Head CT 02/01/20 00:00 IMPRESSION: NO ACUTE INTRACRANIAL FINDINGS. EVIDENCE OF ACUTE STROKE: NO. Chest X-Ray 02/13/20 00:00 IMPRESSION: Improved aeration. Residual presumed chronic change. Assessment and Plan - Diagnosis (1) Drug overdose Qualifiers: Encounter type: subsequent encounter Injury intent: intentional self-harm Qualified Code(s): T50.902D - Poisoning by unspecified drugs, medicaments and biological substances, intentional self-harm, subsequent encounter Is this a current diagnosis for this admission?: Yes Plan: The case was reviewed by psychiatry. Medication regimen suggested was Zyprexa 5 mg twice daily, BuSpar 5 mg twice daily, Cogentin 1 mg daily and clonazepam 0.5 mg every 8 hours if needed for anxiety or agitation. I have adjusted his orders to reflect this regimen. 02/10/2020-patient was comfortably in the bed communicating well. No signs of anxiety depression. Medication use as per psych recommendations. Waiting for inpatient psych facility placement. Patient is still under IVC commitment. 02/11/2020-patient admitted with drug overdose and suicidal attempt. Waiting for placement at inpatient psych facility. He still expressing desire to commit suicide. Patient is under IVC. 02/12/2020-patient is under IVC commitment, awaiting for bed and inpatient psych facility. 02/13/2020-patient is under IVC commitment presently on BuSpar 5 mg p.o. twice daily, Celexa 20 mg daily, clonazepam 0.5 mg 3 times daily. For placement at inpatient psych facility. 02/14/2020-no acute events in the last 24 hours. Patient is comfortable in the bed. Not in distress. Patient is under IVC commitment , sitter present. Waiting for placement. (2) Suicidal overdose Qualifiers: Encounter type: subsequent encounter Qualified Code(s): T50.902D - Poisoning by unspecified drugs, medicaments and biological substances, intentional self-harm, subsequent encounter Is this a current diagnosis for this admission?: Yes Plan: IVC was renewed today. Still looking for placement. 02/10/2020-patient is medically cleared to inpatient psych facility. 02/14/2020-patient is medically cleared, under IVC commitment, sitter present waiting for placement at will inpatient psych facility. (3) Hypotension Qualifiers: Hypotension type: unspecified hypotension type Qualified Code(s): I95.9 - Hypotension, unspecified Is this a current diagnosis for this admission?: Yes Plan: Normal blood pressure. Hypotension resolved. 02/10/2020-blood pressure today is 119/60. Hypotension resolved. 02/12/2020-patient blood pressure today is 105/60. Low normal. Patient is asymptomatic. Under IVC commitment waiting for placement in inpatient psych facility. 02/14/2020-blood pressure today is 120/65 stable. (4) ROMELIA (acute kidney injury) Is this a current diagnosis for this admission?: Yes Plan: Serum creatinine was down to 1.28 several days ago. I will recheck labs tomorrow. Anticipate normal renal function. 02/10/2020-serum creatinine today's 1.26 stable. 02/14/2020-serum creatinine today is 1.55. Blood pressure stable. Asymptomatic. Latest blood pressure is 120/65. (5) Acute metabolic encephalopathy Is this a current diagnosis for this admission?: Yes Plan: The patient is back at baseline. Effects of the polypharmacy overdose - Plan Summary Summary: 02/05/2020 The patient is medically cleared for discharge. This will likely be transferred to an acute inpatient psychiatric facility. Will discuss with psychiatry. 02/08/2020 The patient's brother had several questions. He is very concerned about polypharmacy. I explained the particular reasons for restarting the medications I have restarted. I also stated that they try not to make too many changes within 2 short of a window to avoid the type of polypharmacy that I believe the patient's brother was referring to. In fact with his improvement I will quickly taper off the scheduled lorazepam dosing. The patient's brother does understand that we are waiting placement. - Time Anticipated discharge: Other - Inpatient psych facility Within: within 48 hours
[2020-02-14] MEDS: FAMOTIDINE 20 MG TABLET PO SCH ×2 (09:29→22:15)
[2020-02-14] MEDS: CITALOPRAM HYDROBROMIDE 20 MG TABLET PO SCH (09:29)
[2020-02-14] MEDS: MEGESTROL ACETATE SUSP 400 MG/10 ML UDCUP PO SCH (09:29)
[2020-02-14] MEDS: BUSPIRONE HCL 10 MG TABLET PO SCH ×2 (09:29→22:16)
--- NOTE | 2020-02-14 11:54 | EKG REPORT ---
SEVERITY:- ABNORMAL ECG - SINUS RHYTHM LEFT AXIS DEVIATION BORDERLINE T ABNORMALITIES, ANTERIOR LEADS : Confirmed by: Kurt Lemon MD 14-Feb-2020 11:53:37
[2020-02-14] MEDS ORDERED: CLONAZEPAM 1 MG TABLET PO PRN (14:00)
--- NOTE | 2020-02-14 14:00 | PSYCHOLOGICAL NOTE ---
Psych Note - Psych Note Date seen by psych provider: 02/14/20 Time seen by psych provider: 13:30 Psych Note: Reason for Consult: Intentional Overdose check in conducted with patient: Patient greets clinician upon entering his room. Patient continues to demonstrate flat mood and affect; however, is polite and engages with clinician. Patient states he wants to because there is nothing to live for. He identifies 1 of his stressors is that his family is "stretched out all over the place." He confirms he does live with his aunt approximately 6 months out of the year. Patient's aunt is 78; "she was very young when I was born she was the youngest, my mom a was the oldest that she was 27 when she had me." Patient is asked if he has any concerns at this time. He reports that he does have some "mind fog" but discloses that he feels that he always had this issue. Patient reports he is fine but then again confirms that he wants to . Patient recommendations per [facility]'s contracted psychiatrist Dr. Dacia GONG are as follows discontinue Zyprexa, Cogentin and Ativan please schedule BuSpar 5 mg twice daily please add Celexa 20 mg daily please add clonazepam 0.5 mg 3 times daily as needed Clinical presentation Continued flat mood and affect Continued suicidal ideation after intentional overdose Impression\\plan: Patient is recommended for continued IVC. Patient continues to endorse suicidal ideation after intentional overdose on 02/01/2020. Patient has a mental health history and was seen in the ED for suicidal ideation in August 2016. He was sent under IVC to [facility] during that visit. Patient is high risk do to his history,age, and continued report of wanting to . Dr. Barrett was consulted on the care and management of this patient; attending physician is in agreement with recommendations and disposition.
[2020-02-14] MEDS: LORAZEPAM INJ 2 MG/1 ML VIAL IV PRN (22:21)
[2020-02-15] MEDS: HEPARIN SOD (PORCINE) 5,000 UNIT/ML 1 ML VIAL SUBCUT SCH ×2 (05:44→14:20)
[2020-02-15 07:27] LABS: ALBUMIN 4.6 g/dL (3.5-5.0); ALKALINE PHOSPHATASE 46 U/L (38-126); ANION GAP 11 (5-19); ASPARTATE AMINO TRANSFERASE 29 U/L (17-59); BILIRUBIN,TOTAL 0.7 mg/dL (0.2-1.3); BLOOD UREA NITROGEN 35 mg/dL (7-20); CARBON DIOXIDE 21 mmol/L (22-30); CHLORIDE 106 mmol/L (98-107); GLUCOSE 87 mg/dL (75-110); POTASSIUM 4.6 mmol/L (3.6-5.0); TOTAL PROTEIN 7.5 g/dL (6.3-8.2)
[2020-02-15] MEDS: LORAZEPAM INJ 2 MG/1 ML VIAL IV PRN (07:41)
[2020-02-15] MEDS ORDERED: NORMAL SALINE 1000 ML 1,000 ML IV ONE (08:30)
--- NOTE | 2020-02-15 08:51 | PDOC PROGRESS REPORT ---
Subjective Progress Note for:: 02/15/20 Subjective:: 02/03/2020-no acute events last 24 hours. Afebrile. Blood pressures are improved to 126/73. Labs are stable. Speech consult is pending. Patient is still n.p.o. More alert more awake compared to yesterday. 02/10/2020 patient is resting comfortably. He is still under IVC commitment waiting for place at inpatient psych facility. Patient is medically cleared to go to inpatient psych facility. 02/11/2020-patient is waiting for placement at inpatient psych facility. He is under IVC commitment. No acute events in the last 24 hours. 02/12/2020-no acute events, waiting for placement at inpatient psych facility. 02/13/20-no acute events in the last 24 hours. Afebrile. Doing for placement at inpatient psych facility. Psych medication recommendations are implemented. 02/14/20-no acute events in the last 24 hours. Lab work was done last night they are basically within normal limits. Waiting for placement. 02/15/2020-patient is comfortably in the bed not in distress. Today's labs with creatinine 1.78. On admission creatinine is 1.72. Shows improvement. Given 1 L bolus of normal saline and to recheck labs this evening. Reason For Visit: DRUG OVERDOSE Physical Exam Vital Signs: Temp Pulse Resp BP Pulse Ox 98.5 F 74 17 124/66 98 02/15/20 08:02 02/15/20 08:02 02/15/20 08:02 02/15/20 08:02 02/15/20 08:02 Intake & Output 02/14/20 02/15/20 02/16/20 06:59 06:59 06:59 Intake Total 830 1196 Output Total 400 Balance 430 1196 Weight 77.5 kg 70.1 kg General appearance: PRESENT: no acute distress, well-developed Head exam: PRESENT: atraumatic Eye exam: PRESENT: PERRLA Ear exam: PRESENT: normal external ear exam Mouth exam: PRESENT: moist, tongue midline Teeth exam: PRESENT: poor dentation Neck exam: ABSENT: carotid bruit, JVD, lymphadenopathy, thyromegaly Respiratory exam: PRESENT: decreased breath sounds Cardiovascular exam: PRESENT: RRR. ABSENT: diastolic murmur, rubs, systolic murmur GI/Abdominal exam: PRESENT: normal bowel sounds, soft. ABSENT: distended, guarding, mass, organolmegaly, rebound, tenderness Rectal exam: PRESENT: deferred Extremities exam: PRESENT: full ROM. ABSENT: calf tenderness, clubbing, pedal edema Neurological exam: PRESENT: alert, awake, oriented to person, oriented to place, oriented to time, oriented to situation, CN II-XII grossly intact. ABSENT: motor sensory deficit Psychiatric exam: PRESENT: appropriate affect, normal mood. ABSENT: homicidal ideation, suicidal ideation Results Laboratory Results: 02/13/20 20:38 02/15/20 05:47 02/15/20 05:47 Sodium 137.7 Potassium 4.6 Chloride 106 Carbon Dioxide 21 L Anion Gap 11 BUN 35 H Creatinine 1.58 H Est GFR ( Amer) 53 L Glucose 87 Calcium 10.0 Total Bilirubin 0.7 AST 29 Alkaline Phosphatase 46 Total Protein 7.5 Albumin 4.6 02/01/20 02/01/20 02/02/20 15:13 15:13 04:58 Creatine Kinase 80 842 H Troponin I < 0.012 Impressions: Head CT 02/01/20 00:00 IMPRESSION: NO ACUTE INTRACRANIAL FINDINGS. EVIDENCE OF ACUTE STROKE: NO. Chest X-Ray 02/13/20 00:00 IMPRESSION: Improved aeration. Residual presumed chronic change. Assessment and Plan - Diagnosis (1) Drug overdose Qualifiers: Encounter type: subsequent encounter Injury intent: intentional self-harm Qualified Code(s): T50.902D - Poisoning by unspecified drugs, medicaments and biological substances, intentional self-harm, subsequent encounter Is this a current diagnosis for this admission?: Yes Plan: The case was reviewed by psychiatry. Medication regimen suggested was Zyprexa 5 mg twice daily, BuSpar 5 mg twice daily, Cogentin 1 mg daily and clonazepam 0.5 mg every 8 hours if needed for anxiety or agitation. I have adjusted his orders to reflect this regimen. 02/10/2020-patient was comfortably in the bed communicating well. No signs of anxiety depression. Medication use as per psych recommendations. Waiting for inpatient psych facility placement. Patient is still under IVC commitment. 02/11/2020-patient admitted with drug overdose and suicidal attempt. Waiting for placement at inpatient psych facility. He still expressing desire to commit suicide. Patient is under IVC. 02/12/2020-patient is under IVC commitment, awaiting for bed and inpatient psych facility. 02/13/2020-patient is under IVC commitment presently on BuSpar 5 mg p.o. twice daily, Celexa 20 mg daily, clonazepam 0.5 mg 3 times daily. For placement at inpatient psych facility. 02/14/2020-no acute events in the last 24 hours. Patient is comfortable in the bed. Not in distress. Patient is under IVC commitment , sitter present. Waiting for placement. 02/14-patient admitted with suicidal ideation and attempt under IVC commitment. Waiting for inpatient psych facility placement. (2) Suicidal overdose Qualifiers: Encounter type: subsequent encounter Qualified Code(s): T50.902D - Poisoning by unspecified drugs, medicaments and biological substances, intentional self-harm, subsequent encounter Is this a current diagnosis for this admission?: Yes Plan: IVC was renewed today. Still looking for placement. 02/10/2020-patient is medically cleared to inpatient psych facility. 02/14/2020-patient is medically cleared, under IVC commitment, sitter present waiting for placement at [facility] inpatient psych facility. 02/15/2020-patient is medically cleared, under IVC commitment waiting for a bed at inpatient psych facility. (3) Hypotension Qualifiers: Hypotension type: unspecified hypotension type Qualified Code(s): I95.9 - Hypotension, unspecified Is this a current diagnosis for this admission?: Yes Plan: Normal blood pressure. Hypotension resolved. 02/10/2020-blood pressure today is 119/60. Hypotension resolved. 02/12/2020-patient blood pressure today is 105/60. Low normal. Patient is asymptomatic. Under IVC commitment waiting for placement in inpatient psych facility. 02/14/2020-blood pressure today is 120/65 stable. 02/15/2020-patient came with hypotension which was resolved blood pressure is 120/70 today. (4) ROMELIA (acute kidney injury) Is this a current diagnosis for this admission?: Yes Plan: Serum creatinine was down to 1.28 several days ago. I will recheck labs tomorrow. Anticipate normal renal function. 02/10/2020-serum creatinine today's 1.26 stable. 02/14/2020-serum creatinine today is 1.55. Blood pressure stable. Asymptomatic. Latest blood pressure is 120/65. (5) Acute metabolic encephalopathy Is this a current diagnosis for this admission?: Yes Plan: The patient is back at baseline. Effects of the polypharmacy overdose - Plan Summary Summary: 02/05/2020 The patient is medically cleared for discharge. This will likely be transferred to an acute inpatient psychiatric facility. Will discuss with psychiatry. 02/08/2020 The patient's brother had several questions. He is very concerned about polypharmacy. I explained the particular reasons for restarting the medications I have restarted. I also stated that they try not to make too many changes within 2 short of a window to avoid the type of polypharmacy that I believe the patient's brother was referring to. In fact with his improvement I will quickly taper off the scheduled lorazepam dosing. The patient's brother does understand that we are waiting placement. - Time Anticipated discharge: Other - Inpatient psych facility Within: within 48 hours
[2020-02-15] MEDS: BUSPIRONE HCL 10 MG TABLET PO SCH (10:15)
[2020-02-15] MEDS: CITALOPRAM HYDROBROMIDE 20 MG TABLET PO SCH (10:15)
[2020-02-15] MEDS: FAMOTIDINE 20 MG TABLET PO SCH (10:15)
[2020-02-15] MEDS: MEGESTROL ACETATE SUSP 400 MG/10 ML UDCUP PO SCH (10:20)
[2020-02-15 12:05] VITALS: BP 118/70
[2020-02-15 13:23] LABS: ANION GAP 9 (5-19); BLOOD UREA NITROGEN 33 mg/dL (7-20); CALCIUM 9.6 mg/dL (8.4-10.2); CARBON DIOXIDE 23 mmol/L (22-30); CHLORIDE 106 mmol/L (98-107); GLUCOSE 111 mg/dL (75-110); POTASSIUM 4.6 mmol/L (3.6-5.0)
--- NOTE | 2020-02-15 14:15 | PDOC TRANSFER SUMMARY ---
General Admission Date/PCP: 02/01/20 17:10 AVELINA QUICK MD Resuscitation Status: Full Code - Transfer Diagnosis (1) Drug overdose Is this a current diagnosis for this admission?: Yes (2) Suicidal overdose Is this a current diagnosis for this admission?: Yes (3) Hypotension Is this a current diagnosis for this admission?: Yes (4) ROMELIA (acute kidney injury) Is this a current diagnosis for this admission?: Yes (5) Acute metabolic encephalopathy Is this a current diagnosis for this admission?: Yes - Transfer Medications Home Medications: Aripiprazole 5 mg PO DAILY 02/01/20 Clonazepam 0.5 mg PO TID 02/01/20 Cyproheptadine HCl 4 mg PO TID 02/01/20 Escitalopram Oxalate [Lexapro 10 mg Tablet] 20 mg PO DAILY 02/01/20 Fluoxetine HCl 40 mg PO DAILY 02/01/20 Furosemide [Lasix 20 mg Tablet] 20 mg PO DAILY 02/01/20 Hyoscyamine Sulfate [Levsin 0.125 Tablet] 0.125 mg PO Q4HP PRN 02/01/20 Lisinopril [Prinivil 5 mg Tablet] 5 mg PO DAILY 02/01/20 Olanzapine [Zyprexa 5 mg Tablet] 5 mg PO DAILY 02/01/20 Omeprazole 40 mg PO DAILY 02/01/20 Transfer Medications: Current Medications Acetaminophen (Tylenol 325 Mg Tablet) 650 mg PO Q4HP PRN PRN Reason: FEVER >101 Stop: 03/02/20 16:40 Buspirone HCl (Buspar 10 Mg Tablet) 5 mg PO Q12 GERARDO Stop: 03/14/20 09:59 Last Admin: 02/15/20 10:15 Dose: 5 mg Documented by: Citalopram Hydrobromide (Celexa 20 Mg Tablet) 20 mg PO DAILY GERARDO Stop: 03/14/20 09:59 Last Admin: 02/15/20 10:15 Dose: 20 mg Documented by: Clonazepam (Klonopin 1 Mg Tablet) 0.5 mg PO TIDP PRN PRN Reason: WITHDRAWL SYMPTOMS Stop: 02/20/20 13:59 Famotidine (Pepcid 20 Mg Tablet) 20 mg PO Q12 GERARDO Stop: 03/08/20 09:59 Last Admin: 02/15/20 10:15 Dose: 20 mg Documented by: Heparin Sodium (Porcine) (Heparin Inj 5,000 Units/Ml 1 Ml Vial) 5,000 unit SUBCUT Q8 [facility] Stop: 03/02/20 21:59 Last Admin: 02/15/20 05:44 Dose: Not Given Documented by: Lorazepam (Ativan Inj 2 Mg/1 Ml Vial) 1 mg IV Q4HP PRN PRN Reason: ANXIETY/AGITATION Stop: 02/20/20 10:17 Last Admin: 02/15/20 07:41 Dose: 1 mg Documented by: Megestrol Acetate (Megace Eugenie 400 Mg/10 Ml Udcup) 400 mg PO DAILY [facility] Stop: 03/12/20 09:59 Last Admin: 02/15/20 10:20 Dose: 400 mg Documented by: - Allergies Allergies/Adverse Reactions: Penicillins Allergy (Verified 09/10/16 01:23) Hospital Course Hospital Course: (1) Drug overdose Qualifiers: Encounter type: subsequent encounter Injury intent: intentional self-harm Qualified Code(s): T50.902D - Poisoning by unspecified drugs, medicaments and biological substances, intentional self-harm, subsequent encounter Is this a current diagnosis for this admission?: Yes Plan: The case was reviewed by psychiatry. Medication regimen suggested was Zyprexa 5 mg twice daily, BuSpar 5 mg twice daily, Cogentin 1 mg daily and clonazepam 0.5 mg every 8 hours if needed for anxiety or agitation. I have adjusted his orders to reflect this regimen. 02/10/2020-patient was comfortably in the bed communicating well. No signs of anxiety depression. Medication use as per psych recommendations. Waiting for inpatient psych facility placement. Patient is still under IVC commitment. 02/11/2020-patient admitted with drug overdose and suicidal attempt. Waiting for placement at inpatient psych facility. He still expressing desire to commit suicide. Patient is under IVC. 02/12/2020-patient is under IVC commitment, awaiting for bed and inpatient psych facility. 02/13/2020-patient is under IVC commitment presently on BuSpar 5 mg p.o. twice daily, Celexa 20 mg daily, clonazepam 0.5 mg 3 times daily. For placement at inpatient psych facility. 02/14/2020-no acute events in the last 24 hours. Patient is comfortable in the bed. Not in distress. Patient is under IVC commitment , sitter present. Waiting for placement. 02/14-patient admitted with suicidal ideation and attempt under IVC commitment. Waiting for inpatient psych facility placement. 02/15/2020-patient accepted to inpatient psych facility at [facility]. EMTALA papers signed. (2) Suicidal overdose Qualifiers: Encounter type: subsequent encounter Qualified Code(s): T50.902D - Poisoning by unspecified drugs, medicaments and biological substances, intent ional self-harm, subsequent encounter Is this a current diagnosis for this admission?: Yes Plan: IVC was renewed today. Still looking for placement. 02/10/2020-patient is medically cleared to inpatient psych facility. 02/14/2020-patient is medically cleared, under IVC commitment, sitter present waiting for placement at [facility]. 02/15/2020-patient is medically cleared, under IVC commitment waiting for a bed at inpatient psych facility. 08/17/2019-patient is medically cleared and the patient is accepted to [facility] under IVC commitment. (3) Hypotension Qualifiers: Hypotension type: unspecified hypotension type Qualified Code(s): I95.9 - Hypotension, unspecified Is this a current diagnosis for this admission?: Yes Plan: Normal blood pressure. Hypotension resolved. 02/10/2020-blood pressure today is 119/60. Hypotension resolved. 02/12/2020-patient blood pressure today is 105/60. Low normal. Patient is asymptomatic. Under IVC commitment waiting for placement in inpatient psych facility. 02/14/2020-blood pressure today is 120/65 stable. 02/15/2020-patient came with hypotension which was resolved blood pressure is 120/70 today. (4) ROMELIA (acute kidney injury) Is this a current diagnosis for this admission?: Yes Plan: Serum creatinine was down to 1.28 several days ago. I will recheck labs tomorrow. Anticipate normal renal function. 02/10/2020-serum creatinine today's 1.26 stable. 02/14/2020-serum creatinine today is 1.55. Blood pressure stable. Asymptomatic. Latest blood pressure is 120/65. 02/15/2020-admission serum creatinine is 1.7 today's creatinine is 1.35. Acute kidney injury resolved. (5) Acute metabolic encephalopathy Is this a current diagnosis for this admission?: Yes Plan: The patient is back at baseline. Effects of the polypharmacy overdose - Plan Summary Summary: 02/05/2020 The patient is medically cleared for discharge. This will likely be transferred to an acute inpatient psychiatric facility. Will discuss with psychiatry. 02/08/2020 The patient's brother had several questions. He is very concerned about polypharmacy. I explained the particular reasons for restarting the medications I have restarted. I also stated that they try not to make too many changes within 2 short of a window to avoid the type of polypharmacy that I believe the patient's brother was referring to. In fact with his improvement I will quickly taper off the scheduled lorazepam dosing. The patient's brother does understand that we are waiting placement. - Time Anticipated discharge: Other - Inpatient psych facility Within: within 48 hours Physical Exam Vital Signs: Temp Pulse Resp BP Pulse Ox 98.2 F 73 16 118/70 98 02/15/20 11:53 02/15/20 11:53 02/15/20 11:53 02/15/20 11:53 02/15/20 11:53 Intake & Output 02/14/20 02/15/20 02/16/20 06:59 06:59 06:59 Intake Total 830 1196 1720 Output Total 400 Balance 430 1196 1720 Weight 77.5 kg 70.1 kg General appearance: PRESENT: no acute distress, well-developed Head exam: PRESENT: atraumatic Eye exam: PRESENT: PERRLA Mouth exam: PRESENT: neck supple Teeth exam: PRESENT: poor dentation Neck exam: ABSENT: carotid bruit, JVD, lymphadenopathy, thyromegaly Respiratory exam: PRESENT: decreased breath sounds Cardiovascular exam: PRESENT: RRR. ABSENT: diastolic murmur, rubs, systolic murmur GI/Abdominal exam: PRESENT: normal bowel sounds, soft. ABSENT: distended, guarding, mass, organolmegaly, rebound, tenderness Rectal exam: PRESENT: deferred Extremities exam: PRESENT: full ROM. ABSENT: calf tenderness, clubbing, pedal edema Neurological exam: PRESENT: alert, awake, CN II-XII grossly intact Psychiatric exam: PRESENT: flat affect Results Laboratory Results: 02/13/20 20:38 02/15/20 12:53 02/15/20 02/15/20 05:47 12:53 Sodium 137.7 137.7 Potassium 4.6 4.6 Chloride 106 106 Carbon Dioxide 21 L 23 Anion Gap 11 9 BUN 35 H 33 H Creatinine 1.58 H 1.35 H Est GFR ( Amer) 53 L > 60 Glucose 87 111 H Calcium 10.0 9.6 Total Bilirubin 0.7 AST 29 Alkaline Phosphatase 46 Total Protein 7.5 Albumin 4.6 02/01/20 02/01/20 02/02/20 15:13 15:13 04:58 Creatine Kinase 80 842 H Troponin I < 0.012 Impressions: Head CT 02/01/20 00:00 IMPRESSION: NO ACUTE INTRACRANIAL FINDINGS. EVIDENCE OF ACUTE STROKE: NO. Chest X-Ray 02/13/20 00:00 IMPRESSION: Improved aeration. Residual presumed chronic change. Plan Discharge Plan: Patient is going to inpatient psych facility at [facility]. Time Spent: Greater than 30 Minutes
== END 2020-02-15 15:30 | DRG 917 ==
LOC: ER 15:00 → EH 17:10 → 3S 22:15 → 4N 02-11 15:02
PROVIDERS: ADMIT Internal Medicine; ATTEND Internal Medicine
DX: T50.912A Poisoning by multiple unspecified drugs, medicaments and biological substances, intentional self-harm, initial encounter (principal); G92 Toxic encephalopathy; N17.9 Acute kidney failure, unspecified; F33.2 Major depressive disorder, recurrent severe without psychotic features; I95.2 Hypotension due to drugs; E78.5 Hyperlipidemia, unspecified; I10 Essential (primary) hypertension; K21.9 Gastro-esophageal reflux disease without esophagitis; Y92.9 Unspecified place or not applicable; Z20.828 Contact with and (suspected) exposure to other viral communicable diseases; Z88.0 Allergy status to penicillin
CPT/HCPCS: 36415; 36600; 70450; 71045; 80048; 80053; 80061; 80307; 81001; 82550; 82803; 82962; 83735; 84443; 84484; 85025; 85027; 85610; 87070; 87635; 93005; 93010; 94640; 96360; 99291; C9113; C9803; J1644; J2060; J7030